=== PATIENT | male | born 1945 | race Two or more races ===

== ENCOUNTER 2018-10-03 10:00 | Outpatient (CLI) | payer MEDICARE, MEDICAID | END 2018-10-03 23:59 | disposition home or self-care (01) | LOC: WOU 10:00 | PROVIDERS: ATTEND Podiatrist Foot & Ankle Surgery | DX: I87.333 Chronic venous hypertension (idiopathic) with ulcer and inflammation of bilateral lower extremity (principal); L03.115 Cellulitis of right lower limb; L03.116 Cellulitis of left lower limb; R53.1 Weakness; Z86.73 Personal history of transient ischemic attack (TIA), and cerebral infarction without residual deficits; L97.812 Non-pressure chronic ulcer of other part of right lower leg with fat layer exposed; L97.522 Non-pressure chronic ulcer of other part of left foot with fat layer exposed; Z99.3 Dependence on wheelchair | CPT/HCPCS: 11042; 11045; A6402 ==

== ENCOUNTER 2018-10-10 10:50 | Outpatient (CLI) | payer MEDICARE, MEDICAID | END 2018-10-10 23:59 | disposition home health service (06) | LOC: WOU 10:50 | PROVIDERS: ATTEND Podiatrist Foot & Ankle Surgery | DX: I87.333 Chronic venous hypertension (idiopathic) with ulcer and inflammation of bilateral lower extremity (principal); L97.522 Non-pressure chronic ulcer of other part of left foot with fat layer exposed; L97.812 Non-pressure chronic ulcer of other part of right lower leg with fat layer exposed; L03.116 Cellulitis of left lower limb; L03.115 Cellulitis of right lower limb; Z87.891 Personal history of nicotine dependence; Z86.73 Personal history of transient ischemic attack (TIA), and cerebral infarction without residual deficits; F03.90 Unspecified dementia, unspecified severity, without behavioral disturbance, psychotic disturbance, mood disturbance, and anxiety; Z91.81 History of falling; R53.1 Weakness; Z99.3 Dependence on wheelchair | CPT/HCPCS: 11042; 11045; A6402 ×2 ==

== ENCOUNTER 2018-10-21 10:30 | Outpatient (CLI) | payer MEDICARE, MEDICAID | END 2018-10-21 23:59 | disposition home health service (06) | LOC: WOU 10:30 | PROVIDERS: ATTEND Podiatrist Foot & Ankle Surgery | DX: I87.313 Chronic venous hypertension (idiopathic) with ulcer of bilateral lower extremity (principal); L97.522 Non-pressure chronic ulcer of other part of left foot with fat layer exposed; L97.812 Non-pressure chronic ulcer of other part of right lower leg with fat layer exposed; R53.1 Weakness; Z99.3 Dependence on wheelchair; Z86.73 Personal history of transient ischemic attack (TIA), and cerebral infarction without residual deficits | CPT/HCPCS: 11042; 11045; A6402 ==

== ENCOUNTER 2018-10-28 10:00 | Outpatient (CLI) | payer MEDICARE, MEDICAID | END 2018-10-28 23:59 | disposition home health service (06) | LOC: WOU 10:00 | PROVIDERS: ATTEND Podiatrist Foot & Ankle Surgery | DX: I87.313 Chronic venous hypertension (idiopathic) with ulcer of bilateral lower extremity (principal); L97.522 Non-pressure chronic ulcer of other part of left foot with fat layer exposed; L97.812 Non-pressure chronic ulcer of other part of right lower leg with fat layer exposed; R53.1 Weakness; Z99.3 Dependence on wheelchair; Z87.891 Personal history of nicotine dependence; Z86.73 Personal history of transient ischemic attack (TIA), and cerebral infarction without residual deficits | CPT/HCPCS: 11042; 11045; A6402 ×2 ==

== ENCOUNTER 2018-11-04 10:05 | Outpatient (CLI) | payer MEDICARE, MEDICAID | END 2018-11-04 23:59 | disposition home health service (06) | LOC: WOU 10:05 | PROVIDERS: ATTEND Podiatrist Foot & Ankle Surgery | DX: I87.313 Chronic venous hypertension (idiopathic) with ulcer of bilateral lower extremity (principal); L97.522 Non-pressure chronic ulcer of other part of left foot with fat layer exposed; L97.812 Non-pressure chronic ulcer of other part of right lower leg with fat layer exposed; R53.1 Weakness; Z86.73 Personal history of transient ischemic attack (TIA), and cerebral infarction without residual deficits; Z99.3 Dependence on wheelchair; Z91.81 History of falling | CPT/HCPCS: 11042; 11045; A6402 ×2 ==

== ENCOUNTER 2018-11-25 09:55 | Outpatient (CLI) | payer MEDICARE, MEDICAID | END 2018-11-25 23:59 | disposition home health service (06) | LOC: WOU 09:55 | PROVIDERS: ATTEND Podiatrist Foot & Ankle Surgery | DX: I87.313 Chronic venous hypertension (idiopathic) with ulcer of bilateral lower extremity (principal); L97.522 Non-pressure chronic ulcer of other part of left foot with fat layer exposed; L97.812 Non-pressure chronic ulcer of other part of right lower leg with fat layer exposed; L03.116 Cellulitis of left lower limb; R32 Unspecified urinary incontinence; Z99.3 Dependence on wheelchair; Z86.73 Personal history of transient ischemic attack (TIA), and cerebral infarction without residual deficits | CPT/HCPCS: 11042; A6402 ==

== ENCOUNTER 2018-12-02 10:10 | Outpatient (CLI) | payer MEDICARE, MEDICAID | END 2018-12-02 23:59 | disposition home health service (06) | LOC: WOU 10:10 | PROVIDERS: ATTEND Podiatrist Foot & Ankle Surgery | DX: I87.313 Chronic venous hypertension (idiopathic) with ulcer of bilateral lower extremity (principal); L97.522 Non-pressure chronic ulcer of other part of left foot with fat layer exposed; L97.812 Non-pressure chronic ulcer of other part of right lower leg with fat layer exposed; R53.1 Weakness; L03.116 Cellulitis of left lower limb; Z99.3 Dependence on wheelchair; Z91.81 History of falling | CPT/HCPCS: 11042; A6402 ==

== ENCOUNTER 2019-10-30 09:30 | Outpatient (CLI) | payer MEDICARE, MEDICAID | END 2019-10-30 23:59 | disposition home health service (06) | LOC: WOU 09:30 | PROVIDERS: ATTEND Podiatrist Foot & Ankle Surgery | DX: I87.311 Chronic venous hypertension (idiopathic) with ulcer of right lower extremity (principal); L97.812 Non-pressure chronic ulcer of other part of right lower leg with fat layer exposed; I70.244 Atherosclerosis of native arteries of left leg with ulceration of heel and midfoot; I70.245 Atherosclerosis of native arteries of left leg with ulceration of other part of foot; L97.422 Non-pressure chronic ulcer of left heel and midfoot with fat layer exposed; L97.525 Non-pressure chronic ulcer of other part of left foot with muscle involvement without evidence of necrosis; Z99.3 Dependence on wheelchair; Z91.81 History of falling; Z87.891 Personal history of nicotine dependence | CPT/HCPCS: 11042; 11043; 11045; 87070; 87075; 87077; 87186 ×4; A6452 ==

== ENCOUNTER 2019-11-10 10:00 | Outpatient (CLI) | payer MEDICARE, MEDICAID | END 2019-11-10 23:59 | disposition home health service (06) | LOC: WOU 10:00 | PROVIDERS: ATTEND Podiatrist Foot & Ankle Surgery | DX: I87.311 Chronic venous hypertension (idiopathic) with ulcer of right lower extremity (principal); I70.245 Atherosclerosis of native arteries of left leg with ulceration of other part of foot; I70.244 Atherosclerosis of native arteries of left leg with ulceration of heel and midfoot; L97.525 Non-pressure chronic ulcer of other part of left foot with muscle involvement without evidence of necrosis; L97.412 Non-pressure chronic ulcer of right heel and midfoot with fat layer exposed; L97.812 Non-pressure chronic ulcer of other part of right lower leg with fat layer exposed; I87.2 Venous insufficiency (chronic) (peripheral); Z99.3 Dependence on wheelchair; Z91.81 History of falling; Z79.82 Long term (current) use of aspirin | CPT/HCPCS: 11042; 11043; A6452 ==

== ENCOUNTER 2019-11-11 14:00 | Outpatient (CLI) | payer MEDICARE, MEDICAID | END 2019-11-11 23:59 | disposition home or self-care (01) | LOC: VASLAB 14:00 | PROVIDERS: ATTEND Surgery Vascular Surgery | DX: I73.9 Peripheral vascular disease, unspecified (principal); L97.422 Non-pressure chronic ulcer of left heel and midfoot with fat layer exposed; L97.525 Non-pressure chronic ulcer of other part of left foot with muscle involvement without evidence of necrosis; L97.812 Non-pressure chronic ulcer of other part of right lower leg with fat layer exposed; Z79.82 Long term (current) use of aspirin | CPT/HCPCS: A6452 ×2; G0463 ==

== ENCOUNTER 2019-11-24 10:00 | Outpatient (CLI) | payer MEDICARE, MEDICAID | END 2019-11-24 23:59 | disposition home health service (06) | LOC: WOU 10:00 | PROVIDERS: ATTEND Podiatrist Foot & Ankle Surgery | DX: I87.311 Chronic venous hypertension (idiopathic) with ulcer of right lower extremity (principal); I70.245 Atherosclerosis of native arteries of left leg with ulceration of other part of foot; I70.244 Atherosclerosis of native arteries of left leg with ulceration of heel and midfoot; I70.234 Atherosclerosis of native arteries of right leg with ulceration of heel and midfoot; L97.425 Non-pressure chronic ulcer of left heel and midfoot with muscle involvement without evidence of necrosis; L97.412 Non-pressure chronic ulcer of right heel and midfoot with fat layer exposed; L97.525 Non-pressure chronic ulcer of other part of left foot with muscle involvement without evidence of necrosis; L97.812 Non-pressure chronic ulcer of other part of right lower leg with fat layer exposed; Z79.82 Long term (current) use of aspirin | CPT/HCPCS: 11042; 11043; A6210; A6452 ==

== ENCOUNTER 2019-12-04 10:00 | Outpatient (CLI) | payer MEDICARE, MEDICAID | END 2019-12-04 23:59 | disposition home health service (06) | LOC: WOU 10:00 | PROVIDERS: ATTEND Podiatrist Foot & Ankle Surgery | DX: I87.311 Chronic venous hypertension (idiopathic) with ulcer of right lower extremity (principal); L97.812 Non-pressure chronic ulcer of other part of right lower leg with fat layer exposed; I70.245 Atherosclerosis of native arteries of left leg with ulceration of other part of foot; I70.244 Atherosclerosis of native arteries of left leg with ulceration of heel and midfoot; I70.234 Atherosclerosis of native arteries of right leg with ulceration of heel and midfoot; L97.412 Non-pressure chronic ulcer of right heel and midfoot with fat layer exposed; L97.425 Non-pressure chronic ulcer of left heel and midfoot with muscle involvement without evidence of necrosis; L97.525 Non-pressure chronic ulcer of other part of left foot with muscle involvement without evidence of necrosis; I87.2 Venous insufficiency (chronic) (peripheral); Z79.82 Long term (current) use of aspirin | CPT/HCPCS: 11042; 11044; 11045; 73620; A6210 ==

== ENCOUNTER 2019-12-05 11:00 | Outpatient (CLI) | payer MEDICARE, MEDICAID | END 2019-12-05 23:59 | disposition home or self-care (01) | LOC: WOU 11:00 | PROVIDERS: ATTEND Internal Medicine Infectious Disease | DX: L98.499 Non-pressure chronic ulcer of skin of other sites with unspecified severity (principal); E11.51 Type 2 diabetes mellitus with diabetic peripheral angiopathy without gangrene; F03.90 Unspecified dementia, unspecified severity, without behavioral disturbance, psychotic disturbance, mood disturbance, and anxiety; I10 Essential (primary) hypertension; R62.7 Adult failure to thrive; E66.9 Obesity, unspecified; Z86.73 Personal history of transient ischemic attack (TIA), and cerebral infarction without residual deficits; Z87.440 Personal history of urinary (tract) infections | CPT/HCPCS: G0463 ==

== ENCOUNTER 2019-12-06 08:46 | Outpatient (CLI) | payer MEDICARE, MEDICAID | END 2019-12-06 23:59 | disposition home or self-care (01) | LOC: WOU 08:46 | PROVIDERS: ATTEND Nurse Practitioner Acute Care | DX: Z45.2 Encounter for adjustment and management of vascular access device (principal); L03.116 Cellulitis of left lower limb | CPT/HCPCS: 36569; C1751 ==

== ENCOUNTER → 2019-12-09 | Outpatient (CLI) | payer MEDICARE, MEDICAID ==
[~2019-12-09] MED LIST: ASPI-605 PO; FURO40TA5 PO; METO50TA16 PO; MULT-24 PO; OMEG1CAP PO; UBIQ200C PO
== END | disposition home or self-care (01) ==
LOC: VASLAB 14:00
PROVIDERS: ATTEND Surgery Vascular Surgery
DX: I70.244 Atherosclerosis of native arteries of left leg with ulceration of heel and midfoot (principal); I70.245 Atherosclerosis of native arteries of left leg with ulceration of other part of foot; L97.429 Non-pressure chronic ulcer of left heel and midfoot with unspecified severity; I87.2 Venous insufficiency (chronic) (peripheral); Z79.82 Long term (current) use of aspirin
CPT/HCPCS: G0463

== ENCOUNTER 2019-12-11 13:10 | Outpatient (CLI) | payer MEDICARE, MEDICAID ==
[2019-12-12] MEDS ORDERED: FURO40TA5 PO (14:42)
[2019-12-12] MEDS ORDERED: OMEG1CAP PO (14:42)
[2019-12-12] MEDS ORDERED: UBIQ200C PO (14:42)
[2019-12-12] MEDS ORDERED: MULT-24 PO (14:42)
[2019-12-12] MEDS ORDERED: METO50TA16 PO (14:42)
[2019-12-12] MEDS ORDERED: ASPI-605 PO (14:42)
== END 2019-12-11 23:59 | disposition home health service (06) ==
LOC: WOU 13:10
PROVIDERS: ATTEND Podiatrist Foot & Ankle Surgery
DX: I70.244 Atherosclerosis of native arteries of left leg with ulceration of heel and midfoot (principal); I70.234 Atherosclerosis of native arteries of right leg with ulceration of heel and midfoot; I70.245 Atherosclerosis of native arteries of left leg with ulceration of other part of foot; I87.311 Chronic venous hypertension (idiopathic) with ulcer of right lower extremity; I96 Gangrene, not elsewhere classified; I87.2 Venous insufficiency (chronic) (peripheral); L97.425 Non-pressure chronic ulcer of left heel and midfoot with muscle involvement without evidence of necrosis; L97.412 Non-pressure chronic ulcer of right heel and midfoot with fat layer exposed; L97.525 Non-pressure chronic ulcer of other part of left foot with muscle involvement without evidence of necrosis; L97.812 Non-pressure chronic ulcer of other part of right lower leg with fat layer exposed; Z99.3 Dependence on wheelchair; Z79.82 Long term (current) use of aspirin
CPT/HCPCS: A6209; G0463

== ENCOUNTER 2019-12-12 13:04 | Inpatient (IN) | payer MEDICARE, OTHER ==
[~2019-12-12] VITALS: Ht 170.2 cm; Wt 91.6 kg
[2019-12-12 13:47] LABS: BASOPHILS # (AUTO) 0.1 /CMM (0.0-0.2); BASOPHILS % (AUTO) 0.7 % (0.0-2.0); EOSINOPHILS % (AUTO) 0.4 % (0.0-6.0); HEMATOCRIT 47 % (39-51); HEMOGLOBIN 14.3 g/dL (13.5-17.5); LYMPHOCYTES # (AUTO) 0.8 /CMM (0.8-4.8); LYMPHOCYTES % (AUTO) 5.8 % (20.0-44.0); MEAN CORPUSCULAR HGB CONC 31 g/dl (31.0-36.0); MEAN CORPUSCULAR VOLUME 91 fL (80-96); MONOCYTES # (AUTO) 0.7 /CMM (0.1-1.30); MONOCYTES % (AUTO) 5.3 % (2.0-12.0); NEUTROPHILS # (AUTO) 11.9 /CMM (1.8-8.9); NEUTROPHILS % (AUTO) 87.8 % (43.0-81.0); PLATELET COUNT (AUTO) 238 /CMM (150-450); RED BLOOD CELL COUNT(AUTO) 5.14 MIL/uL (4.5-6.0); WHITE BLOOD COUNT (AUTO) 13.6 K/uL (4.3-11.0)
--- NOTE | 2019-12-12 14:00 | NUR ---
Family Daughter Dory updated with plan of care
[2019-12-12 14:03] LABS: ALANINE AMINOTRANSFERASE 27 U/L (12-78); ALBUMIN 2.2 g/dL (3.4-5.0); ALKALINE PHOSPHATASE 121 U/L (46-116); ASPARTATE AMINOTRANSFERASE 20 U/L (15-37); BILIRUBIN,DIRECT 0.2 mg/dL (0.0-0.2); BILIRUBIN,TOTAL 0.6 mg/dL (0.2-1.0); CALCIUM, SERUM 10.1 mg/dL (8.5-10.1); CARBON DIOXIDE 28 mmol/L (21-32); CHLORIDE 100 mmol/L (98-107); CREATININE 1.6 mg/dL (0.6-1.3); POTASSIUM 5.1 mmol/L (3.5-5.1); SODIUM SERUM 133 mmol/L (136-145); TOTAL PROTEIN, SERUM 8.3 g/dL (6.4-8.2); UREA NITROGEN, BLOOD 37 mg/dL (7-18)
[2019-12-12 14:16] LABS: GLUCOSE 754 mg/dL (74-106)
[2019-12-12] MEDS ORDERED: UBIQ200C PO (14:42)
[2019-12-12] MEDS ORDERED: ASPI-605 PO (14:42)
[2019-12-12] MEDS ORDERED: OMEG1CAP PO (14:42)
[2019-12-12] MEDS ORDERED: FURO40TA5 PO (14:42)
[2019-12-12] MEDS ORDERED: METO50TA16 PO (14:42)
[2019-12-12] MEDS ORDERED: MULT-24 PO (14:42)
[2019-12-12] MEDS ORDERED: INSULIN REGULAR, HUMAN 100 UNIT/ML 10 ML VIAL SQ ONE (15:00)
[2019-12-12] MEDS ORDERED: IV NS 0.9% 1,000 ML IV ONE (15:00)
--- NOTE | 2019-12-12 15:01 | NUR ---
Reclining in bed dozing on/off NO obvious distress. Awaiting admission
[2019-12-12] MEDS ORDERED: INSULIN REGULAR, HUMAN 100 UNIT/ML 10 ML VIAL ONE ×2 (15:29→17:36)
--- NOTE | 2019-12-12 16:20 | NUR ---
PANEL ON-CALL PAGED
--- NOTE | 2019-12-12 16:50 | NUR ---
PAGED EPIC SECOND ATTEMPT.
--- NOTE | 2019-12-12 17:00 | NUR ---
Await admission. No acute changes
--- NOTE | 2019-12-12 17:28 | NUR ---
BED ASSIGNED [id number]
--- NOTE | 2019-12-12 17:39 | NUR ---
Dr Espinal made aware of ACCU 600 with orders for 10units Regular Insulin SQ and 1L of NS bolus -Given as ordered
--- NOTE | 2019-12-12 17:48 | NUR ---
Nurse Knowledge Exchange w/RN Leatha. Transported per gurney to floor NO acute changes. No obvious distress
[2019-12-12] MEDS ORDERED: MAG HYDROX/AL HYDROX/SIMETH 30 ML UDC PO PRN (18:00)
[2019-12-12] MEDS ORDERED: MAGNESIUM HYDROXIDE 30 ML UDC PO PRN (18:00)
[2019-12-12] MEDS ORDERED: ACETAMINOPHEN 325 MG TABLET PO PRN (18:00)
[2019-12-12] MEDS ORDERED: HYDROCODONE/APAP 5/325MG 1 EACH TABLET PO PRN (18:00)
[2019-12-12] MEDS ORDERED: DEXTROSE 50%-WATER 50 ML DISP.SYRIN IV PRN (18:00)
[2019-12-12] MEDS ORDERED: ONDANSETRON HCL/PF 4 MG/2 ML VIAL IVP PRN (18:00)
[2019-12-12] MEDS ORDERED: FEE PK DOSING 1 MIN EA MC ONE (18:46)
--- NOTE | 2019-12-12 19:39 | NUR ---
MS RN RECEIVE PT IN BED A/O X 1 NEW ADMIT STABLE CONDITION ADMIT TO MS NO S/S OF DISTRESS, SAFETY MEASURES AT ALL TIMES. WILL CONT TO MONITOR
[2019-12-12 20:00] VITALS: BP 130/89
[2019-12-12] MEDS ORDERED: MEROPENEM 1 G in IV NS 0.9% 100 ML IV ONE (20:00)
--- NOTE | 2019-12-12 20:00 | NUR ---
MS RN SPOKE TO AMILCAR DAUGHTER REGARDING PT UPDATED PLAN OF CARE AND FACE TIME WITH HIS FATHER AMILCAR APPRECIATIVE TO THE NURSE
[2019-12-12 20:16] VITALS: BP 130/89
[2019-12-12] MEDS: IV NS 0.9% 1,000 ML IV PRN (20:36)
[2019-12-12] MEDS ORDERED: MEROPENEM 1 G in IV NS 0.9% 100 ML IV SCH (21:00)
[2019-12-12] MEDS: VANCOMYCIN 1 GM in IV D5W 250 ML IV SCH (21:14)
[2019-12-12] MEDS: BLOOD SUGAR DIAGNOSTIC 1 EACH STRIP IN SCH (21:16)
[2019-12-12] MEDS: INSULIN GLARGINE, 100 UNIT/ML CARTRIDGE SQ SCH (21:17)
[2019-12-12] MEDS: *INSULIN REGULAR(HUMULIN R)HUM 100 UNIT/ML VIAL SQ PRN (21:19)
[2019-12-13] MEDS: MEROPENEM 1 G in IV NS 0.9% 100 ML IV SCH ×2 (03:38→15:40)
--- NOTE | 2019-12-13 05:42 | NUR ---
MS RN SLEPT WELL, AFEBRILE. NO S/S OF DISTRESS. ALL NEEDS ATTENDED AND ANTICIPATED, KEPT CLEAN, DRY AND COMFORTABLE. AM CARE RENDERED, REPOSITION EVERY 2 HOURS, SAFETY MEASURES AT ALL TIMES. WILL ENDORSE TO NEXT SHIFT.
[2019-12-13] MEDS: IV NS 0.9% 1,000 ML IV PRN ×2 (06:14→22:02)
[2019-12-13] MEDS: INSULIN REGULAR, HUMAN 100 UNIT/ML 3 ML VIAL SQ PRN ×2 (06:32→11:55)
[2019-12-13 06:44] LABS: BASOPHILS # (AUTO) 0.1 /CMM (0.0-0.2); BASOPHILS % (AUTO) 0.8 % (0.0-2.0); HEMATOCRIT 39 % (39-51); HEMOGLOBIN 12.6 g/dL (13.5-17.5); LYMPHOCYTES # (AUTO) 1.1 /CMM (0.8-4.8); LYMPHOCYTES % (AUTO) 11.7 % (20.0-44.0); MEAN CORPUSCULAR HGB CONC 32 g/dl (31.0-36.0); MEAN CORPUSCULAR VOLUME 87 fL (80-96); MONOCYTES # (AUTO) 0.6 /CMM (0.1-1.30); NEUTROPHILS # (AUTO) 7.3 /CMM (1.8-8.9); NEUTROPHILS % (AUTO) 79.5 % (43.0-81.0); PLATELET COUNT (AUTO) 197 /CMM (150-450); RED BLOOD CELL COUNT(AUTO) 4.53 MIL/uL (4.5-6.0); WHITE BLOOD COUNT (AUTO) 9.2 K/uL (4.3-11.0)
[2019-12-13 07:27] LABS: ALBUMIN 1.8 g/dL (3.4-5.0); BILIRUBIN,TOTAL 0.5 mg/dL (0.2-1.0); CALCIUM, SERUM 9.1 mg/dL (8.5-10.1); CREATININE 1.1 mg/dL (0.6-1.3); MAGNESIUM 2.2 mg/dL (1.8-2.4); PHOSPHORUS 2.8 mg/dL (2.5-4.9); POTASSIUM 3.7 mmol/L (3.5-5.1)
[2019-12-13] MEDS: BLOOD SUGAR DIAGNOSTIC 1 EACH STRIP IN SCH ×4 (07:27→22:03)
--- NOTE | 2019-12-13 07:30 | NUR ---
MS RN NOTES RECEIVED PATIENT IN BED RESTING COMFORTABLY IN MODERATE HIGH BACK REST. A/O X1, NO S/S OF DISTRESS NOTED AT THIS TIME, IV FLUIDS ON SILVINO PICC LINE WITH NS RUNNING @100ML/HR. PATENT AND INTACT, SAFETY MEASURES IN PLACE, BED PLACE IN LOWEST LOCKED POSITION WITH SIDE RAILS UP X2. CALL LIGHT WITHIN REACH. WILL CONTINUE TO MONITOR.
[2019-12-13 08:00] VITALS: BP 132/82
[2019-12-13] MEDS: ASPIRIN EC 81 MG TABLET.DR PO SCH (08:24)
[2019-12-13] MEDS: FUROSEMIDE 40 MG TABLET PO SCH (08:24)
[2019-12-13] MEDS: MULTIVITAMINS,THERAGRAN 1 UDTAB TABLET PO SCH (08:24)
[2019-12-13] MEDS: PANTOPRAZOLE 40 MG TABLET.DR PO SCH (08:25)
[2019-12-13] MEDS: METOPROLOL TARTRATE 50 MG TABLET PO SCH ×2 (08:25→16:24)
[2019-12-13] MEDS: VANCOMYCIN 1 GM in IV D5W 250 ML IV SCH (14:26)
[2019-12-13 15:30] LABS: CREATININE, URINE < 13.0 MG/DL (30.0-125.0); URINE SODIUM, RANDOM 137 mmol/l (40-220); URINE TOTAL PROTEIN 12.2 mg/dL (0-11.9)
[2019-12-13 15:41] LABS: APPEARANCE,URINE CLEAR (CLEAR); BILIRUBIN,URINE NEGATIVE (NEGATIVE); BLOOD, URINE TRACE-INTA Ery/uL (NEGATIVE); COLOR,URINE YELLOW (YELLOW); KETONES,URINE NEGATIVE (NEGATIVE); LEUKOCYTE ESTERASE ,URINE TRACE (NEGATIVE); NITRITE, URINE NEGATIVE (NEGATIVE); PH,URINE 5.5 (5.0-8.0); PROTEIN,URINE NEGATIVE (NEGATIVE); UGLUCOSE NEGATIVE (NEGATIVE); UROBILINOGEN,URINE 0.2 EU/dL (0.2)
[2019-12-13 15:48] LABS: BACTERIA,URINE None seen /HPF (None Seen); HYALINE CASTS, URINE Few /LPF (None Seen); RBC,URINE 0-2 /HPF (0-2); SQUAMOUS EPITHELIAL CELL,UR Few /HPF (None Seen); WBC,URINE 0-2 /HPF (0-3)
[2019-12-13 15:50] LABS: EOSINOPHIL,URINE None Seen
--- NOTE | 2019-12-13 18:33 | NUR ---
MS RN NOTES PATIENT IN BED RESTING COMFORTABLY IN MODERATE HIGH BACK REST. A/O X1, NO S/S OF DISTRESS NOTED THROUGHOUT THE SHIFT, IV FLUIDS ON SILVINO PICC LINE WITH NS RUNNING @100ML/HR. PATENT AND INTACT, SAFETY MEASURES IN PLACE, BED PLACE IN LOWEST LOCKED POSITION WITH SIDE RAILS UP X2. CALL LIGHT WITHIN REACH. WILL ENDORSE TO MAGNETIC TESTER NURSE FOR ANGELY.
--- NOTE | 2019-12-13 19:14 | NUR ---
MS RN RECEIVE PT IN BED AWAKE A/O X 1 STABLE, NO S/S OF DISTRESS, SAFETY MEASURES AT ALL TIMES. WILL CONT TO MONITOR
[2019-12-13 20:00] VITALS: BP 116/57
[2019-12-13 20:12] VITALS: BP 116/57
[2019-12-13] MEDS: *INSULIN REGULAR(HUMULIN R)HUM 100 UNIT/ML VIAL SQ PRN (22:06)
[2019-12-13] MEDS: INSULIN GLARGINE, 100 UNIT/ML CARTRIDGE SQ SCH (22:11)
[2019-12-14] MEDS: MEROPENEM 1 G in IV NS 0.9% 100 ML IV SCH ×2 (03:55→15:07)
--- NOTE | 2019-12-14 05:44 | NUR ---
MS RN PT SLEPT WELL, GOOD SKIN CARE AT ALL TIMES, MONITORED ACCORDINGLY, NEEDS ATTENDED AND ANTICIPATED, KEPT CLEAN, DRY AND COMFORTABLE. AM CARE RENDERED, REPOSITION EVERY 2 HOURS, SAFETY MEASURES AT ALL TIMES. WILL ENDORSE TO NEXT SHIFT.
[2019-12-14] MEDS: BLOOD SUGAR DIAGNOSTIC 1 EACH STRIP IN SCH ×4 (06:29→21:25)
[2019-12-14] MEDS: INSULIN REGULAR, HUMAN 100 UNIT/ML 3 ML VIAL SQ PRN ×3 (06:31→16:59)
[2019-12-14 08:00] VITALS: BP 143/81
[2019-12-14 08:11] LABS: BASOPHILS # (AUTO) 0.1 /CMM (0.0-0.2); HEMATOCRIT 42 % (39-51); HEMOGLOBIN 13.3 g/dL (13.5-17.5); LYMPHOCYTES # (AUTO) 1.2 /CMM (0.8-4.8); LYMPHOCYTES % (AUTO) 14.1 % (20.0-44.0); MEAN CORPUSCULAR HGB CONC 31 g/dl (31.0-36.0); MEAN CORPUSCULAR VOLUME 88 fL (80-96); MONOCYTES # (AUTO) 0.6 /CMM (0.1-1.30); MONOCYTES % (AUTO) 6.4 % (2.0-12.0); NEUTROPHILS # (AUTO) 6.7 /CMM (1.8-8.9); NEUTROPHILS % (AUTO) 76.5 % (43.0-81.0); PLATELET COUNT (AUTO) 195 /CMM (150-450); WHITE BLOOD COUNT (AUTO) 8.8 K/uL (4.3-11.0)
[2019-12-14] MEDS: ASPIRIN EC 81 MG TABLET.DR PO SCH (08:13)
[2019-12-14] MEDS: FUROSEMIDE 40 MG TABLET PO SCH (08:13)
[2019-12-14] MEDS: MULTIVITAMINS,THERAGRAN 1 UDTAB TABLET PO SCH (08:13)
[2019-12-14] MEDS: PANTOPRAZOLE 40 MG TABLET.DR PO SCH (08:13)
[2019-12-14] MEDS: METOPROLOL TARTRATE 50 MG TABLET PO SCH ×2 (08:14→16:15)
[2019-12-14 08:52] LABS: CALCIUM, SERUM 8.9 mg/dL (8.5-10.1); CREATININE 1.2 mg/dL (0.6-1.3); POTASSIUM 3.4 mmol/L (3.5-5.1)
[2019-12-14] MEDS: IV NS 0.9% 1,000 ML IV PRN (08:58)
[2019-12-14] MEDS: VANCOMYCIN 1 GM in IV D5W 250 ML IV SCH (09:11)
[2019-12-14] MEDS ORDERED: POTASSIUM CHLORIDE 20 MEQ TAB.PRT.SR PO SCH (10:00)
[2019-12-14 10:09] LABS: PTH, INTACT 26 pg/mL (15-65)
[2019-12-14 16:00] VITALS: BP 128/68
[2019-12-14] MEDS: GLUCERNA SHAKE 237 ML CAN PO SCH (17:30)
--- NOTE | 2019-12-14 18:49 | NUR ---
MS RN NOTES PATIENT IN BED RESTING COMFORTABLY IN MODERATE HIGH BACK REST. A/O X1, NO S/S OF DISTRESS NOTED THROUGHOUT THE SHIFT, IV FLUIDS ON SILVINO PICC LINE WITH NS RUNNING @100ML/HR. PATENT AND INTACT, SAFETY MEASURES IN PLACE, BED PLACE IN LOWEST LOCKED POSITION WITH SIDE RAILS UP X2. CALL LIGHT WITHIN REACH. WILL ENDORSE TO LNA NURSE FOR ANGELY.
--- NOTE | 2019-12-14 19:50 | NUR ---
MS RN OPENING NOTES RECEIVED PATIENT FROM MORNING SHIFT, ALERT AND ORIENTED X 1 CONFUSED. BREATHING REGULAR AND UNLABORED ON OXYGEN AT 2L/MIN VIA NASAL CANNULA. RIGHT UPPER ARM PICC LINE INTACT AND PATENT, INFUSING WELL WITH NO BLEEDING OR S/S OF INFILTRATION NOTED. NO S/S OF PAIN/DISCOMFORT NOTED AT THIS TIME. BED LOW AND LOCKED ON SEMI FOWLERS POSITION. CALL LIGHT IN REACH. WILL CONTINUE TO MONITOR.
[2019-12-14 20:00] VITALS: BP 121/68
[2019-12-14] MEDS: INSULIN GLARGINE, 100 UNIT/ML CARTRIDGE SQ SCH (21:24)
[2019-12-14] MEDS: *INSULIN REGULAR(HUMULIN R)HUM 100 UNIT/ML VIAL SQ PRN (21:25)
--- NOTE | 2019-12-14 21:30 | NUR ---
MS RN NOTES BS 229mg/dl, 24UNITS LANTUS AND 4UNITS REGULAR INSULIN GIVEN SQ. SITE ROTATED. ASSISTED ON EATING SNACKS. WILL CONTINUE TO MONITOR.
--- NOTE | 2019-12-14 22:00 | NUR ---
MS RN NOTES SKIN ASSESSMENT DONE, PHOTOS TAKEN ATTACHED TO CHART. WOUND TREATMENT PROVIDED. WILL CONTINUE TO MONITOR.
[2019-12-15] MEDS: VANCOMYCIN 1 GM in IV D5W 250 ML IV SCH ×2 (01:07→20:47)
[2019-12-15] MEDS: IV NS 0.9% 1,000 ML IV PRN (01:25)
[2019-12-15] MEDS: MEROPENEM 1 G in IV NS 0.9% 100 ML IV SCH ×2 (03:41→16:07)
[2019-12-15] MEDS: BLOOD SUGAR DIAGNOSTIC 1 EACH STRIP IN SCH ×4 (06:37→21:46)
[2019-12-15] MEDS: INSULIN REGULAR, HUMAN 100 UNIT/ML 3 ML VIAL SQ PRN ×3 (06:38→17:44)
--- NOTE | 2019-12-15 06:40 | NUR ---
MS RN CLOSING NOTES PATIENT IN BED, ALERT AND ORIENTED X 1 CONFUSED. AFEBRILE WITH NO S/SOF DISTRESS OBSERVED. RIGHT UPPER ARM PICC LINE PATENT AND INFUSING WELL. NO S/S OF PAIN/DISCOMFORT NOTED AT THIS TIME. BED LOW AND LOCKED ON SEMI FOWLERS POSITION. CALL LIGHT IN REACH. WILL ENDORSE TO MORNING SHIFT FOR ANGELY.
[2019-12-15 06:50] LABS: BASOPHILS # (AUTO) 0.1 /CMM (0.0-0.2); BASOPHILS % (AUTO) 1.4 % (0.0-2.0); EOSINOPHILS % (AUTO) 1.9 % (0.0-6.0); HEMATOCRIT 41 % (39-51); HEMOGLOBIN 12.9 g/dL (13.5-17.5); LYMPHOCYTES # (AUTO) 1.2 /CMM (0.8-4.8); LYMPHOCYTES % (AUTO) 12.8 % (20.0-44.0); MEAN CORPUSCULAR HGB CONC 32 g/dl (31.0-36.0); MEAN CORPUSCULAR VOLUME 87 fL (80-96); MONOCYTES # (AUTO) 0.6 /CMM (0.1-1.30); MONOCYTES % (AUTO) 6.5 % (2.0-12.0); NEUTROPHILS % (AUTO) 77.4 % (43.0-81.0); PLATELET COUNT (AUTO) 174 /CMM (150-450); RED BLOOD CELL COUNT(AUTO) 4.65 MIL/uL (4.5-6.0)
--- NOTE | 2019-12-15 07:14 | NUR ---
MS/RN OPENING NOTES RECEIVED PATIENT IN BED, ALERT AND ORIENTED X 1 CONFUSED. AFEBRILE WITH NO S/S OF DISTRESS OBSERVED. RIGHT UPPER ARM PICC LINE PATENT AND INFUSING WELL. NO S/S OF PAIN/DISCOMFORT NOTED AT THIS TIME. BED LOW AND LOCKED ON SEMI FOWLERS POSITION. CALL LIGHT IN REACH. WILL CONTINUE TO MONITOR.
[2019-12-15 07:30] VITALS: BP 139/78
[2019-12-15 07:35] LABS: ALBUMIN 1.7 g/dL (3.4-5.0); BILIRUBIN,TOTAL 0.6 mg/dL (0.2-1.0); CALCIUM, SERUM 8.5 mg/dL (8.5-10.1); CREATININE 1.1 mg/dL (0.6-1.3); MAGNESIUM 1.8 mg/dL (1.8-2.4); PHOSPHORUS 2.2 mg/dL (2.5-4.9); POTASSIUM 3.4 mmol/L (3.5-5.1); TOTAL PROTEIN, SERUM 6.9 g/dL (6.4-8.2)
[2019-12-15] MEDS: PANTOPRAZOLE 40 MG TABLET.DR PO SCH (07:50)
--- NOTE | 2019-12-15 08:21 | NUR ---
WOUND CARE CONSULT: PT PRESENTS WITH RASH TO GROIN FOLDS, INNER THIGHS AND PERINEUM, PRESENT ON ADMISSION. PT ALSO PRESENTS FROM WOUND CLINIC WITH MULTIPLE WOUNDS TO LOWER EXTREMITIES, PRESENT ON ADMISSION. DEFER TO DPM FOR LOWER EXREMITIES. DR BROWN AWARE OF DPM CONSULT REQUEST. PT IS ON PEDRITO ISOFLEX LOW AIRLOSS BED. PT IS INCONTINENT. ALL SKIN PROTECTION RECOMMENDATIONS DISCUSSED WITH NURSING STAFF. WILL SEE PRN. GLOVER IN AGREEMENT WITH PLAN OF CARE. Addendum: 12/15/19 at 0824 by EMEKA SANDY WNDNU Amended: Links added.
[2019-12-15] MEDS ORDERED: Z GUARD REMEDY 2 OZ OINT TP PRN (08:30)
[2019-12-15] MEDS: MULTIVITAMINS,THERAGRAN 1 UDTAB TABLET PO SCH (08:40)
[2019-12-15] MEDS: ASPIRIN EC 81 MG TABLET.DR PO SCH (08:40)
[2019-12-15] MEDS: FUROSEMIDE 40 MG TABLET PO SCH (08:41)
[2019-12-15] MEDS: METOPROLOL TARTRATE 50 MG TABLET PO SCH ×2 (08:41→17:32)
[2019-12-15] MEDS: CLOTRIMAZOLE 1% 15 GM TUBE TP SCH ×2 (08:42→17:34)
[2019-12-15] MEDS: Z GUARD REMEDY 2 OZ OINT TP SCH (08:42)
[2019-12-15] MEDS: GLUCERNA SHAKE 237 ML CAN PO SCH ×2 (08:43→17:45)
[2019-12-15] MEDS ORDERED: POTASSIUM CHLORIDE 20 MEQ TAB.PRT.SR PO ONE (09:30)
[2019-12-15] MEDS ORDERED: NEUTRA PHOS 1 POWD.PACKET PO ONE (09:30)
[2019-12-15 16:00] VITALS: BP 125/69
[2019-12-15 16:09] LABS: *SPE ALPHA-1-GLOBULIN 0.3 g/dL (0.0-0.4); *SPE BETA GLOBULIN 0.8 g/dL (0.7-1.3); *SPE GLOBULIN, TOTAL 3.8 g/dL (2.2-3.9); *SPE M-SPIKE Not Observed g/dL (Not Observed); *SPEGAMMA GLOBULIN 1.6 g/dL (0.4-1.8)
[2019-12-15 16:10] LABS: *SPE A/G RATIO 0.5 (0.7-1.7)
--- NOTE | 2019-12-15 19:11 | NUR ---
MS/RN CLOSING NOTES PATIENT IN BED, ALERT AND ORIENTED X 1-2 CONFUSED. AFEBRILE WITH NO S/S OF DISTRESS OBSERVED. RIGHT UPPER ARM PICC LINE PATENT AND INFUSING WELL. NO S/S OF PAIN/DISCOMFORT NOTED AT THIS TIME. SEEN AND EXAMINED BY MD WITH ORDERS MADE AND CARRIED OUT. ALL DUE MEDICATION WAS GIVEN. BED LOW AND LOCKED ON SEMI FOWLERS POSITION. CALL LIGHT IN REACH. WILL ENDORSED TO TECHNICAL SOLUTION ARCHITECT FOR ANGELY.
--- NOTE | 2019-12-15 19:45 | NUR ---
MS RN OPENING NOTES RECEIVED PATIENT FROM MORNING SHIFT, ALERT AND ORIENTED X 1-2. BREATHING REGULAR AND UNLABORED ON OXYGEN AT 2L/MIN VIA NASAL CANNULA. RIGHT UPPER ARM PICC LINE INTACT AND PATENT, INFUSING WELL WITH NO BLEEDING OR S/S OF INFILTRATION NOTED. NO S/S OF PAIN/DISCOMFORT NOTED AT THIS TIME. BED LOW AND LOCKED ON SEMI FOWLERS POSITION. CALL LIGHT IN REACH. WILL CONTINUE TO MONITOR.
[2019-12-15 20:00] VITALS: BP 137/81
[2019-12-15] MEDS: INSULIN GLARGINE, 100 UNIT/ML CARTRIDGE SQ SCH (21:48)
[2019-12-15] MEDS: *INSULIN REGULAR(HUMULIN R)HUM 100 UNIT/ML VIAL SQ PRN (21:49)
--- NOTE | 2019-12-15 22:00 | NUR ---
MS RN NOTES BS 237mg/dl, 24UNITS LANTUS AND 4UNITS REGULAR INSULIN GIVEN SQ. SITE ROTATED. ASSISTED ON EATING SNACKS. WILL CONTINUE TO MONITOR.
[2019-12-16] MEDS: MEROPENEM 1 G in IV NS 0.9% 100 ML IV SCH ×2 (04:04→16:49)
[2019-12-16] MEDS: BLOOD SUGAR DIAGNOSTIC 1 EACH STRIP IN SCH ×4 (06:31→22:18)
[2019-12-16] MEDS: INSULIN REGULAR, HUMAN 100 UNIT/ML 3 ML VIAL SQ PRN ×3 (06:32→17:21)
--- NOTE | 2019-12-16 06:40 | NUR ---
MS RN CLOSING NOTES PATIENT IN BED, ALERT AND ORIENTED X 1-2. AFEBRILE WITH NO S/SOF DISTRESS OBSERVED. RIGHT UPPER ARM PICC LINE PATENT AND FLUSHING WELL. NO S/S OF PAIN/DISCOMFORT NOTED AT THIS TIME. BED LOW AND LOCKED ON SEMI FOWLERS POSITION. CALL LIGHT IN REACH. WILL ENDORSE TO MORNING SHIFT FOR ANGELY.
[2019-12-16 07:02] LABS: BASOPHILS # (AUTO) 0.1 /CMM (0.0-0.2); EOSINOPHILS % (AUTO) 2.6 % (0.0-6.0); HEMATOCRIT 41 % (39-51); HEMOGLOBIN 13.3 g/dL (13.5-17.5); LYMPHOCYTES # (AUTO) 1.2 /CMM (0.8-4.8); LYMPHOCYTES % (AUTO) 13.9 % (20.0-44.0); MEAN CORPUSCULAR HGB CONC 32 g/dl (31.0-36.0); MEAN CORPUSCULAR VOLUME 86 fL (80-96); MONOCYTES # (AUTO) 0.6 /CMM (0.1-1.30); MONOCYTES % (AUTO) 6.7 % (2.0-12.0); NEUTROPHILS # (AUTO) 6.8 /CMM (1.8-8.9); NEUTROPHILS % (AUTO) 75.8 % (43.0-81.0); PLATELET COUNT (AUTO) 176 /CMM (150-450); RED BLOOD CELL COUNT(AUTO) 4.79 MIL/uL (4.5-6.0); WHITE BLOOD COUNT (AUTO) 8.9 K/uL (4.3-11.0)
[2019-12-16 07:28] LABS: CALCIUM, SERUM 8.7 mg/dL (8.5-10.1); CREATININE 1.2 mg/dL (0.6-1.3); MAGNESIUM 1.7 mg/dL (1.8-2.4); PHOSPHORUS 2.6 mg/dL (2.5-4.9); POTASSIUM 3.6 mmol/L (3.5-5.1)
--- NOTE | 2019-12-16 07:30 | NUR ---
MS/RN NOTE THE PATIENT IS RECEIVED IN BED. THE PATIENT IS ALERT AND ORIENTED X2. PATIENT DENIES PAIN. IN ROOM AIR AND DENIES SOB. RESPIRATION REGULAR AND UNLABORED. THE PATIENT IN NO APPARENT DISTRESS. SILVINO PICC LINE PATENT AND SALINE LOCKED. BED LOW AND LOCKED. SIDE RAILS UP X3. CALL LIGHT WITHIN REACH. WILL CONTINUE TO MONITOR.
[2019-12-16 08:00] VITALS: BP 154/72
[2019-12-16] MEDS: PANTOPRAZOLE 40 MG TABLET.DR PO SCH (09:34)
[2019-12-16] MEDS: ASPIRIN EC 81 MG TABLET.DR PO SCH (09:34)
[2019-12-16] MEDS: FUROSEMIDE 40 MG TABLET PO SCH (09:34)
[2019-12-16] MEDS: METOPROLOL TARTRATE 50 MG TABLET PO SCH ×2 (09:34→17:24)
[2019-12-16] MEDS: MULTIVITAMINS,THERAGRAN 1 UDTAB TABLET PO SCH (09:34)
[2019-12-16] MEDS: CLOTRIMAZOLE 1% 15 GM TUBE TP SCH ×2 (09:36→17:22)
[2019-12-16] MEDS: HYDROGEL DRESSING 90 GM TUBE TP SCH (09:36)
[2019-12-16] MEDS: Z GUARD REMEDY 2 OZ OINT TP SCH (09:36)
[2019-12-16] MEDS: GLUCERNA SHAKE 237 ML CAN PO SCH ×2 (09:38→17:22)
[2019-12-16] MEDS: Magnesium 1GM/D5W 100ML PREMIX 100 ML IV SCH ×2 (11:19→15:31)
[2019-12-16] MEDS: VANCOMYCIN 1 GM in IV D5W 250 ML IV SCH (14:17)
[2019-12-16 15:57] VITALS: BP 118/62
--- NOTE | 2019-12-16 19:10 | NUR ---
RN OPENING NOTES Received patient awake, confused, resting on bed. On RA, saturating well, no respiratory distress noted at this time. No s/sx of discomfort noted at this time. Kept on bed clean, dry and comfortable. On fall and aspiration precautions. Kept HOB elevated at all times. Will continue to monitor accordingly.
--- NOTE | 2019-12-16 19:31 | NUR ---
MS/RN NOTE THE PATIENT HAD ELEVATED BLOOD SUGAR: AT 1717 IT WAS 407 AT 1738 IS WAS 403 AT 1804 IT WAS 394 AT 1816 IT WAS 381 AT [address] MULLER WAS MADE AWARE OF ALL BLOOD SUGAR RESULTS. FOR BLOOD SUGAR OF 407 GAVE 20 UNIT REGULAR INSULIN PER SLIDING SCALE AND INFORMED MD. PER MD MONITORED THE PATIENT`S BLOOD SUGAR AND AFTER REPORTING ANOTHER BLOOD SUGAR READING (381) MD ORDERED REGULAR 5 UNITS INSULIN TO BE GIVEN TID WITH MEALS. THE ORDER IS VERIFIED. NOTED AND CARRIED OUT. UPCOMING SHIFT IS GIVEN PROPER ENDORSEMENT.
--- NOTE | 2019-12-16 19:35 | NUR ---
MS/RN NOTE THE PATIENT IS ALERT AND ORIENTED X2. DENIES PAIN. RECEIVING OXYGEN AT 2L/MIN VIA NASAL CANNULA AND SATURATION AT 96%. DENIES SOB. RESPIRATION REGULAR AND UNLABORED. PATIENT IN NO APPARENT DISTRESS. SILVINO PICC LINE PATENT AND IV ANTIBIOTIC INFUSING PER ORDER. NO S/S INFILTRATION NOTED. BED LOW AND LOCKED. SIDE RAILS UP X3. CALL LIGHT WITHIN REACH. ENDORSED TO REGROOVER.
[2019-12-16 20:00] VITALS: BP 123/77
[2019-12-16] MEDS: INSULIN GLARGINE, 100 UNIT/ML CARTRIDGE SQ SCH (22:00)
[2019-12-16] MEDS: IV NS 0.9% 1,000 ML IV PRN (23:18)
[2019-12-17] VITALS (13 sets, daily range): BP systolic 124–160; BP diastolic 60–94
[2019-12-17] MEDS: MEROPENEM 1 G in IV NS 0.9% 100 ML IV SCH ×2 (04:19→16:00)
--- NOTE | 2019-12-17 06:29 | NUR ---
RN CLOSING NOTES Patient asleep, easily awaken. On RA, no s/sx of discomfort noted at this time. Kept on NPO since midnight. On IVF infusing well as ordered. All nursing needs attended, due meds given as ordered. Kept on bed clean, dry and comfortable. On fall and aspiration precautions. Endorsed.
[2019-12-17] MEDS: BLOOD SUGAR DIAGNOSTIC 1 EACH STRIP IN SCH ×4 (06:49→21:44)
[2019-12-17] MEDS: *INSULIN REGULAR(HUMULIN R)HUM 100 UNIT/ML VIAL SQ PRN ×2 (06:50→21:44)
--- NOTE | 2019-12-17 07:00 | NUR ---
MS RN NOTES PATIENT IN BED EYES CLOSED, RESPOND TO VERBAL AND TACTILE STIMULI. NO ACUTE DISTRESS NOTED. BREATHING UNLABORED. NO FACIAL GRIMACING NOTED. IV ACCESS PATENT AND INTACT. NO REDNESS , NO SWELLING NOTED. SAFETY MEASURES IN PLACE. CALL LIGHT WITHIN REACH WILL CONTINUE TO MONITOR ACCORDINGLY.
[2019-12-17 07:18] LABS: BASOPHILS # (AUTO) 0.1 /CMM (0.0-0.2); BASOPHILS % (AUTO) 1.1 % (0.0-2.0); EOSINOPHILS % (AUTO) 3.2 % (0.0-6.0); HEMATOCRIT 39 % (39-51); HEMOGLOBIN 12.3 g/dL (13.5-17.5); LYMPHOCYTES # (AUTO) 1.1 /CMM (0.8-4.8); LYMPHOCYTES % (AUTO) 16.1 % (20.0-44.0); MEAN CORPUSCULAR HGB CONC 32 g/dl (31.0-36.0); MEAN CORPUSCULAR VOLUME 88 fL (80-96); MONOCYTES # (AUTO) 0.5 /CMM (0.1-1.30); NEUTROPHILS # (AUTO) 4.8 /CMM (1.8-8.9); NEUTROPHILS % (AUTO) 71.6 % (43.0-81.0); PLATELET COUNT (AUTO) 138 /CMM (150-450); RED BLOOD CELL COUNT(AUTO) 4.48 MIL/uL (4.5-6.0); WHITE BLOOD COUNT (AUTO) 6.7 K/uL (4.3-11.0)
[2019-12-17] MEDS: PANTOPRAZOLE 40 MG TABLET.DR PO SCH (07:30)
[2019-12-17 07:39] LABS: CALCIUM, SERUM 8.5 mg/dL (8.5-10.1); CREATININE 1.3 mg/dL (0.6-1.3); POTASSIUM 3.8 mmol/L (3.5-5.1)
[2019-12-17] MEDS: GLUCERNA SHAKE 237 ML CAN PO SCH ×2 (08:00→17:00)
[2019-12-17] MEDS: INSULIN REGULAR, HUMAN 100 UNIT/ML 3 ML VIAL SQ SCH ×3 (08:00→18:00)
[2019-12-17] MEDS ORDERED: IODIXANOL 150 ML IV ONE (08:08)
[2019-12-17] MEDS ORDERED: IV SET PRIMARY PUMP SET 1 EA INFUS.SET MC ONE (08:09)
[2019-12-17] MEDS ORDERED: IV NS 0.9% 1,000 ML ONE (08:09)
[2019-12-17] MEDS: VANCOMYCIN 1 GM in IV D5W 250 ML IV SCH ×2 (08:30→16:00)
--- NOTE | 2019-12-17 08:30 | NUR ---
MS RN NOTES PATIENT TRANSPORTED FOR PROCEDURE IN STABLE CONDITION. ALERT ORIENTED X 1.
[2019-12-17] MEDS ORDERED: LIDOCAINE HCL/PF 1% 30 ML SDV ONE (08:49)
[2019-12-17] MEDS: HYDROGEL DRESSING 90 GM TUBE TP SCH (09:00)
[2019-12-17] MEDS: MULTIVITAMINS,THERAGRAN 1 UDTAB TABLET PO SCH (09:00)
[2019-12-17] MEDS ORDERED: MIDAZOLAM HCL 2 MG/2ML VIAL ONE ×2 (09:00→10:27)
[2019-12-17] MEDS: Z GUARD REMEDY 2 OZ OINT TP SCH (09:00)
[2019-12-17] MEDS: ASPIRIN EC 81 MG TABLET.DR PO SCH (09:00)
[2019-12-17] MEDS ORDERED: FENTANYL PF 100MCG/2ML AMPUL ONE ×2 (09:00→09:02)
[2019-12-17] MEDS: POTASSIUM CHLORIDE 20 MEQ TAB.PRT.SR PO SCH (09:00)
[2019-12-17] MEDS: METOPROLOL TARTRATE 50 MG TABLET PO SCH ×2 (09:00→17:42)
[2019-12-17] MEDS: FUROSEMIDE 40 MG TABLET PO SCH (09:00)
[2019-12-17] MEDS: CLOTRIMAZOLE 1% 15 GM TUBE TP SCH ×2 (09:00→17:00)
[2019-12-17] MEDS ORDERED: NALOXONE HCL 0.4 MG/ML AMPUL ONE (09:11)
--- NOTE | 2019-12-17 09:30 | NUR ---
MS MERCEDES NOTES PATIENT TRANSPORTED FOR PROCEDURE IN STABLE CONDITION. ALERT ORIENTED X 1. Addendum: 12/17/19 at 1026 by NOÉ WHITNEY RN DISREGARD ABOVE NOTES, WRONG ENTRY
[2019-12-17] MEDS ORDERED: IODIXANOL 320MG/ML 100 ML IV ONE (09:33)
[2019-12-17] MEDS ORDERED: HEPARIN SODIUM, PORCINE 1,000 UNIT/ML VIAL ONE ×2 (09:37→10:30)
[2019-12-17] MEDS ORDERED: IODIXANOL 320MG/ML 50 ML IV ONE (09:53)
[2019-12-17] MEDS: IV NS 0.9% 1,000 ML IV PRN (13:00)
[2019-12-17 13:07] LABS: BASOPHILS # (AUTO) 0.1 /CMM (0.0-0.2); BASOPHILS % (AUTO) 1.1 % (0.0-2.0); EOSINOPHILS % (AUTO) 1.9 % (0.0-6.0); HEMATOCRIT 43 % (39-51); HEMOGLOBIN 13.6 g/dL (13.5-17.5); LYMPHOCYTES # (AUTO) 0.9 /CMM (0.8-4.8); LYMPHOCYTES % (AUTO) 11.2 % (20.0-44.0); MEAN CORPUSCULAR HGB CONC 32 g/dl (31.0-36.0); MEAN CORPUSCULAR VOLUME 87 fL (80-96); MONOCYTES # (AUTO) 0.5 /CMM (0.1-1.30); NEUTROPHILS # (AUTO) 6.6 /CMM (1.8-8.9); NEUTROPHILS % (AUTO) 79.8 % (43.0-81.0); PLATELET COUNT (AUTO) 188 /CMM (150-450); RED BLOOD CELL COUNT(AUTO) 4.91 MIL/uL (4.5-6.0); WHITE BLOOD COUNT (AUTO) 8.2 K/uL (4.3-11.0)
[2019-12-17 13:26] LABS: ALBUMIN 1.9 g/dL (3.4-5.0); BILIRUBIN,TOTAL 0.6 mg/dL (0.2-1.0); CALCIUM, SERUM 8.7 mg/dL (8.5-10.1); CREATININE 1.2 mg/dL (0.6-1.3); POTASSIUM 4.1 mmol/L (3.5-5.1); TOTAL PROTEIN, SERUM 7.5 g/dL (6.4-8.2)
[2019-12-17] MEDS ORDERED: HYDROCODONE/APAP 5/325MG 1 EACH TABLET PO PRN ×2 (14:30)
[2019-12-17] MEDS ORDERED: CLOPIDOGREL BISULFATE 300 MG TABLET PO ONE (14:30)
[2019-12-17] MEDS ORDERED: ACETAMINOPHEN 325 MG TABLET PO PRN (14:30)
[2019-12-17] MEDS: INSULIN REGULAR, HUMAN 100 UNIT/ML 3 ML VIAL SQ PRN (18:00)
--- NOTE | 2019-12-17 19:00 | NUR ---
CHILDREN'S TUTOR Closing Patient s/p balloon angio today, no bleeding from site noted. Room air SPO2 94%. Says simple words, oriented to self, follows simple commands. Sign for thickened liquids only at bedside, suction setup. Patient belongings at bedside.
--- NOTE | 2019-12-17 20:00 | NUR ---
RN OPENING NOTES Received patient awake,A/O X1-2 with period of confusion . On o2 at 1liter via nc , saturating well97% no respiratory distress noted at this time.v/s stable afebrile s/p angioplasty right femoral site dressing dry intact no bleeding noted .No s/s of discomfort noted at this time. Kept on bed clean, dry and comfortable. On fall and aspiration precautions. Kept HOB elevated at all times. Will continue to monitor accordingly.
[2019-12-17] MEDS: ENOXAPARIN SODIUM 40 MG/0.4 ML DISP.SYRIN SQ SCH (21:13)
--- NOTE | 2019-12-17 21:30 | NUR ---
corn miller notes spoke to melanie daughter updated with pts condition , able to do face time with the daughter.all needs attended to call light within reach kept pts clean dry and comfortable , will continue to monitor pts
[2019-12-17] MEDS: INSULIN GLARGINE, 100 UNIT/ML CARTRIDGE SQ SCH (21:40)
--- NOTE | 2019-12-17 22:00 | NUR ---
precision agriculture technician notes blood sugar for 10pm is 269 mg/dl 6 units og regular insulin given per sliding scale and 24 units of lantus given as order pts on po diet and on ivf on ns 75cc/hr infusing well.
[2019-12-18] VITALS (22 sets, daily range): BP systolic 107–198; BP diastolic 54–100
[2019-12-18 05:58] LABS: ALBUMIN 1.8 g/dL (3.4-5.0); BILIRUBIN,TOTAL 0.6 mg/dL (0.2-1.0); CALCIUM, SERUM 8.7 mg/dL (8.5-10.1); CREATININE 1.1 mg/dL (0.6-1.3); POTASSIUM 3.8 mmol/L (3.5-5.1); TOTAL PROTEIN, SERUM 6.8 g/dL (6.4-8.2)
--- NOTE | 2019-12-18 07:30 | NUR ---
RN NOTES RECEIVED PATIENT, AWAKE, ALERT, ORIENTEDX1, ABLE TO MAKE NEEDS KNOWN AND EXPRESSES SELF TO SIMPLE WORDS.ABLE TO FOLLOW COMMANDS. NOT ON ANY FORM OF DISTRESS. BREATHING UNLABORED WITH OXYGEN SUPPORT VIA NASAL CANNULA AT 2LPM. SATING FINE. NO INDICATION OF PAIN NOTED AT THIS TIME. IV ACCESS ON THE LEFT UPPER ARM, SAFETY MEASURES OBSERVED AND MAINTAINED. SRX2 [id number] CALL LIGHT PLACED WITHIN REACH WILL CONTINUE TO MONITOR PATIENT ACCORDINGLY
[2019-12-18] MEDS: ASPIRIN EC 81 MG TABLET.DR PO SCH (07:52)
[2019-12-18] MEDS: POTASSIUM CHLORIDE 20 MEQ TAB.PRT.SR PO SCH (07:52)
[2019-12-18] MEDS: METOPROLOL TARTRATE 50 MG TABLET PO SCH ×2 (07:53→17:59)
[2019-12-18] MEDS: MULTIVITAMINS,THERAGRAN 1 UDTAB TABLET PO SCH (07:53)
[2019-12-18] MEDS: HYDROGEL DRESSING 90 GM TUBE TP SCH (07:54)
[2019-12-18] MEDS: Z GUARD REMEDY 2 OZ OINT TP SCH (07:54)
[2019-12-18] MEDS: CLOTRIMAZOLE 1% 15 GM TUBE TP SCH ×2 (07:54→17:59)
[2019-12-18] MEDS: PANTOPRAZOLE 40 MG TABLET.DR PO SCH (07:55)
[2019-12-18] MEDS: GLUCERNA SHAKE 237 ML CAN PO SCH ×2 (07:55→17:59)
[2019-12-18] MEDS: INSULIN REGULAR, HUMAN 100 UNIT/ML 3 ML VIAL SQ SCH ×3 (08:00→18:06)
[2019-12-18] MEDS: BLOOD SUGAR DIAGNOSTIC 1 EACH STRIP IN SCH ×4 (09:45→21:29)
[2019-12-18] MEDS: CLOPIDOGREL BISULFATE 75 MG TABLET PO SCH (09:46)
[2019-12-18] MEDS: FUROSEMIDE 40 MG TABLET PO SCH (09:46)
--- NOTE | 2019-12-18 12:00 | NUR ---
RN NOTES CLARIFIED WITH DR. MULLER IF HE WOULD WANT US TO GIVE 5 UNITS OF REGULAR INSULIN ON TOP OF THE AGRESSIVE SLIDING SCALE INSULIN AWAITING RESPONSE. SLIDING SCALE NOT GIVEN BUT SCHEDULE 5 UNITS ADMINISTERED. PATIENT ONLY ATE 25% OF THE SERVED FOOD
--- NOTE | 2019-12-18 12:00 | NUR ---
RN NOTES DR. BROWN OBTAINED CONSENT FOR SERIAL DEBRIDEMENT FROM DAUGHTER AMILCAR.WOUND DEBRIDEMENT AND WOUND TREATMENT RENDERED AFTER. PATIENT ABLE TO TOLERATE THE PROCEDURE WELL. WILL CONTINUE TO MONITOR PATIENT ACCORDINGLY
[2019-12-18 13:06] LABS: BASOPHILS # (AUTO) 0.1 /CMM (0.0-0.2); HEMATOCRIT 40 % (39-51); HEMOGLOBIN 12.5 g/dL (13.5-17.5); LYMPHOCYTES # (AUTO) 1.1 /CMM (0.8-4.8); LYMPHOCYTES % (AUTO) 13.1 % (20.0-44.0); MEAN CORPUSCULAR HGB CONC 32 g/dl (31.0-36.0); MEAN CORPUSCULAR VOLUME 88 fL (80-96); MONOCYTES # (AUTO) 0.8 /CMM (0.1-1.30); MONOCYTES % (AUTO) 9.4 % (2.0-12.0); NEUTROPHILS # (AUTO) 5.9 /CMM (1.8-8.9); NEUTROPHILS % (AUTO) 73.5 % (43.0-81.0); PLATELET COUNT (AUTO) 189 /CMM (150-450)
[2019-12-18] MEDS: MEROPENEM 1 G in IV NS 0.9% 100 ML IV SCH (17:37)
--- NOTE | 2019-12-18 18:00 | NUR ---
RN SLIDING SCALE NOT GIVEN BUT SCHEDULE 5 UNITS ADMINISTERED. PATIENT ONLY ATE 25% OF THE SERVED FOOD
[2019-12-18] MEDS: VANCOMYCIN 1 GM in IV D5W 250 ML IV SCH (18:23)
--- NOTE | 2019-12-18 18:35 | NUR ---
RN NOTES TRANSFERRED TO MED SURG ROOM 202. BEDSIDE REPORT GIVEN TO DAREN MCGUIRE. HANDS OFF
--- NOTE | 2019-12-18 19:00 | NUR ---
RN NOTES PATIENT TRANSFERRED FROM ICE PATIENT A/O X1, STABLE , ON ROOM AIR, NO ACUTE RESPIRATORY DISTRESS,V/S TAKEN BP 148/ 78, P-77, T-98. PATIENT BED REST,REFUSED PAIN AT THIS TIME. CALL LIGHT WITHIN REACH. CALL LIGHT WITHIN TO REACH. ENDORSED ONCOMING NURSE FOLLOW PLAN OF CARE.
--- NOTE | 2019-12-18 19:38 | NUR ---
MS RN RECEIVE PT IN BED AWAKE WATCHING TV A/O X 1 STABLE, NO S/S OF DISTRESS, SAFETY MEASURES AT ALL TIMES. WILL CONT TO MONITOR
[2019-12-18] MEDS: ENOXAPARIN SODIUM 40 MG/0.4 ML DISP.SYRIN SQ SCH (21:21)
[2019-12-18] MEDS: INSULIN GLARGINE, 100 UNIT/ML CARTRIDGE SQ SCH (21:29)
[2019-12-18] MEDS: *INSULIN REGULAR(HUMULIN R)HUM 100 UNIT/ML VIAL SQ PRN (21:30)
[2019-12-19] MEDS: MEROPENEM 1 G in IV NS 0.9% 100 ML IV SCH ×2 (03:28→16:05)
--- NOTE | 2019-12-19 05:50 | NUR ---
MS RN NO SIGNIFICANT CHANGES, ALL NEEDS ATTENDED AND ANTICIPATED, WOUND CARE ORDERED. NO S/S OF DISTRESS, KEPT CLEAN, DRY AND COMFORTABLE. REPOSITION EVERY 2 HOURS, SAFETY MEASURES AT ALL TIMES. WILL ENDORSE TO NEXT SHIFT.
[2019-12-19] MEDS: INSULIN REGULAR, HUMAN 100 UNIT/ML 3 ML VIAL SQ PRN ×2 (06:25→17:20)
[2019-12-19] MEDS: BLOOD SUGAR DIAGNOSTIC 1 EACH STRIP IN SCH ×4 (06:25→21:05)
[2019-12-19 06:53] LABS: BASOPHILS # (AUTO) 0.1 /CMM (0.0-0.2); BASOPHILS % (AUTO) 0.9 % (0.0-2.0); HEMATOCRIT 39 % (39-51); HEMOGLOBIN 12.4 g/dL (13.5-17.5); LYMPHOCYTES # (AUTO) 0.9 /CMM (0.8-4.8); LYMPHOCYTES % (AUTO) 11.8 % (20.0-44.0); MEAN CORPUSCULAR HGB CONC 32 g/dl (31.0-36.0); MEAN CORPUSCULAR VOLUME 86 fL (80-96); MONOCYTES # (AUTO) 0.6 /CMM (0.1-1.30); MONOCYTES % (AUTO) 7.9 % (2.0-12.0); NEUTROPHILS % (AUTO) 75.4 % (43.0-81.0); PLATELET COUNT (AUTO) 178 /CMM (150-450); RED BLOOD CELL COUNT(AUTO) 4.49 MIL/uL (4.5-6.0); WHITE BLOOD COUNT (AUTO) 7.9 K/uL (4.3-11.0)
[2019-12-19 07:25] LABS: ALANINE AMINOTRANSFERASE 20 U/L (12-78); ALBUMIN 1.8 g/dL (3.4-5.0); ALKALINE PHOSPHATASE 90 U/L (46-116); ASPARTATE AMINOTRANSFERASE 23 U/L (15-37); BILIRUBIN,TOTAL 0.5 mg/dL (0.2-1.0); CALCIUM, SERUM 8.5 mg/dL (8.5-10.1); CARBON DIOXIDE 33 mmol/L (21-32); CHLORIDE 105 mmol/L (98-107); CREATININE 1.1 mg/dL (0.6-1.3); GLUCOSE 108 mg/dL (74-106); PHOSPHORUS 2.5 mg/dL (2.5-4.9); POTASSIUM 3.3 mmol/L (3.5-5.1); SODIUM SERUM 141 mmol/L (136-145); TOTAL PROTEIN, SERUM 6.7 g/dL (6.4-8.2); UREA NITROGEN, BLOOD 12 mg/dL (7-18)
[2019-12-19 08:00] VITALS: BP 145/81
[2019-12-19] MEDS: INSULIN REGULAR, HUMAN 100 UNIT/ML 3 ML VIAL SQ SCH ×3 (08:00→17:15)
--- NOTE | 2019-12-19 08:00 | NUR ---
RN NOTES RECEIVED PATIENT IN THE BED A/O X1, BUT REDIRECTABLE. PATIENT ROOM AIR, NO ACUTE RESPIRATORY DISTRESS, BS-92 GM/DL, HELD SCHEDULED INSULIN. PATIENT TOTAL ASSIST EATING NECTAR THICKENER , AND DAILY HYGIENE. TOLERATED BREAKFAST WELL, ADMINISTERED SCHEDULED MEDICATION BY CRUSHED, KEEP HOB ELEVATED FOR ASPIRATION PRECAUTION. PATIENT HAS [place], WOUND BILATERAL LOWER EXTREMITIES, REFUSED PAIN, ASSIST TURN AND REPOSTION Q 2HR, IV ACCESS ON RIGHT UA PICC LINE. PATIENT INCONTINENT.
[2019-12-19] MEDS: METOPROLOL TARTRATE 50 MG TABLET PO SCH ×2 (08:48→17:07)
[2019-12-19] MEDS: ASPIRIN EC 81 MG TABLET.DR PO SCH (08:48)
[2019-12-19] MEDS: FUROSEMIDE 40 MG TABLET PO SCH (08:48)
[2019-12-19] MEDS: POTASSIUM CHLORIDE 20 MEQ TAB.PRT.SR PO SCH (08:48)
[2019-12-19] MEDS: MULTIVITAMINS,THERAGRAN 1 UDTAB TABLET PO SCH (08:48)
[2019-12-19] MEDS: CLOPIDOGREL BISULFATE 75 MG TABLET PO SCH (08:49)
[2019-12-19] MEDS: GLUCERNA SHAKE 237 ML CAN PO SCH ×2 (08:49→17:05)
[2019-12-19] MEDS: PANTOPRAZOLE 40 MG TABLET.DR PO SCH (08:49)
[2019-12-19] MEDS: CLOTRIMAZOLE 1% 15 GM TUBE TP SCH ×2 (08:50→17:04)
[2019-12-19] MEDS: HYDROGEL DRESSING 90 GM TUBE TP SCH (08:50)
[2019-12-19] MEDS: Z GUARD REMEDY 2 OZ OINT TP SCH (08:50)
[2019-12-19] MEDS ORDERED: diphenhydrAMINE HCL 25 MG CAPSULE PO PRN (12:30)
--- NOTE | 2019-12-19 12:30 | NUR ---
RN NOTES SEEN PATIENT BY HOSPITALIST Dr MULLER GET TO ORDER BENADRYL 25 MG/ PO PRN FOR RASH ON BACK. ORDER TAKEN AND CARRIED OUT.
--- NOTE | 2019-12-19 13:20 | NUR ---
RN NOTES ADMINISTERED BENADRYL 25 MG PO PRN FOR ITCHING.
--- NOTE | 2019-12-19 14:00 | NUR ---
RN NOTES SEEN PATIENT BY WOUND MD, DRESSING CHANGED, PER SUPERVISOR SANDBLASTER PATIENT WILL D/C HOME, NO MORE TREATMENT, PATIENT WILL FOLLOW OUTPATIENT WOUND. MEDICATION WERE ADMINISTERED FOR ITCHING EFFECTIVE, ASSIST TURN AND REPOSITION Q 2 HR. PATIENT TOLERATED LUNCH WELL WITH ASSIST, BS-113 MG/DL, ADMINISTERED SCHEDULED MEDICATION. CONTINUED MONITORING.
[2019-12-19] MEDS: VANCOMYCIN 1 GM in IV D5W 250 ML IV SCH (16:26)
--- NOTE | 2019-12-19 18:00 | NUR ---
RN NOTES BS-223 MG/DL COVERAGE GIVEN, V/S STABLE, PATIENT REFUSED PAIN, ASSIST FEEDING, AND TURN AND REPOSTION Q 2 HR. INFUSING MERREM 33.33 EXTENDED DOSE ON RIGHT UA INTACT. CALL LIGHT WITHIN TO REACH. ADMINISTERED SCHEDULED MEDICATION. ENDORSED ONCOMING NURSE FOLLOW PLAN OF CARE.
--- NOTE | 2019-12-19 19:22 | NUR ---
MS RN RECEIVE PT IN BED AWAKE WATCHING TV A/O X 1 NO S/S OF DISTRESS SAFETY MEASURES AT ALL TIMES. WILL CONT TO MONITOR
[2019-12-19 20:00] VITALS: BP 131/71
[2019-12-19] MEDS: INSULIN GLARGINE, 100 UNIT/ML CARTRIDGE SQ SCH (21:06)
[2019-12-19] MEDS: ENOXAPARIN SODIUM 40 MG/0.4 ML DISP.SYRIN SQ SCH (21:11)
[2019-12-19] MEDS: *INSULIN REGULAR(HUMULIN R)HUM 100 UNIT/ML VIAL SQ PRN (21:15)
[2019-12-19 21:27] VITALS: BP 131/71
[2019-12-20] MEDS: MEROPENEM 1 G in IV NS 0.9% 100 ML IV SCH ×2 (03:10→18:09)
--- NOTE | 2019-12-20 05:23 | NUR ---
MS RN NO SIGNIFICANT CHANGES, PT STABLE AND NOT IN DISTRESS, NURSING CARE RENDERED, WOUND CARE ORDERED. KEPT CLEAN, DRY AND COMFORTABLE. REPOSITION EVERY 2 HOURS, SAFETY MEASURES AT ALL TIMES. WILL ENDORSE TO NEXT SHIFT.
[2019-12-20 06:46] LABS: CALCIUM, SERUM 8.5 mg/dL (8.5-10.1); CREATININE 1.1 mg/dL (0.6-1.3); POTASSIUM 3.2 mmol/L (3.5-5.1)
[2019-12-20] MEDS: BLOOD SUGAR DIAGNOSTIC 1 EACH STRIP IN SCH ×3 (06:55→18:07)
[2019-12-20] MEDS: INSULIN REGULAR, HUMAN 100 UNIT/ML 3 ML VIAL SQ PRN ×2 (06:56→12:40)
--- NOTE | 2019-12-20 07:20 | NUR ---
RN BRENNAN NOTES RECEIVED PATIENT IN THE BED A/O X1, BUT REDIRECTABLE. PATIENT ON ROOM AIR, NOT IN ANY FORM OF DISTRESS. NO SOB. DENIED PAIN OR DISCOMFORT AT THIS TIME. HOB ELEVATED FOR ASPIRATION PRECAUTION. IV ACCESS INTACT AND PATENT. NOTED WITH WOUND ON BILATERAL LOWER EXTREMITIES. ASSISTED IN TURNING AND REPOSITIONING Q 2HR. SAFETY MEASURES IN PLACE. BED IN LOW/LOCKED PSOTIION, SIDERAILS UPX2, CALL IGHT IN REACH. WILL CONT TO MONIOTR ACCORDINGLY
[2019-12-20 08:00] VITALS: BP 120/75
[2019-12-20] MEDS: INSULIN REGULAR, HUMAN 100 UNIT/ML 3 ML VIAL SQ SCH ×2 (08:00→13:11)
[2019-12-20] MEDS: MULTIVITAMINS,THERAGRAN 1 UDTAB TABLET PO SCH (08:50)
[2019-12-20] MEDS: PANTOPRAZOLE 40 MG TABLET.DR PO SCH (08:51)
[2019-12-20] MEDS: CLOPIDOGREL BISULFATE 75 MG TABLET PO SCH (08:51)
[2019-12-20] MEDS: POTASSIUM CHLORIDE 20 MEQ TAB.PRT.SR PO SCH ×3 (08:51→12:34)
[2019-12-20] MEDS: FUROSEMIDE 40 MG TABLET PO SCH (08:52)
[2019-12-20] MEDS: METOPROLOL TARTRATE 50 MG TABLET PO SCH ×2 (08:52→18:07)
[2019-12-20] MEDS: ASPIRIN EC 81 MG TABLET.DR PO SCH (08:52)
[2019-12-20] MEDS: GLUCERNA SHAKE 237 ML CAN PO SCH ×2 (08:57→18:05)
[2019-12-20] MEDS: HYDROGEL DRESSING 90 GM TUBE TP SCH (09:00)
[2019-12-20] MEDS: CLOTRIMAZOLE 1% 15 GM TUBE TP SCH ×2 (09:00→18:05)
[2019-12-20] MEDS: Z GUARD REMEDY 2 OZ OINT TP SCH (09:01)
[2019-12-20 16:00] VITALS: BP 143/84
[2019-12-20] MEDS: VANCOMYCIN 1 GM in IV D5W 250 ML IV SCH (16:34)
[2019-12-20 18:07] VITALS: BP 143/84
--- NOTE | 2019-12-20 18:40 | NUR ---
DISCHARGED PATIENT IN STABLE CONDITION PICKED UP BY CHARGING CRANE OPERATOR. DISCHARGED INSTRUCTION GIVEN TO PATIENT AND CALLED THE FAMILY, VERBALIZED UNDERSTANDING. PRESCRIPTIONS, ALL BELONGINGS AND DC PAPERWORK HANDED TO CHARGING CRANE OPERATOR. PERSONAL IV PUMP RETURNED AND HANDED TO CHARGING CRANE OPERATOR. SUPPLIES FOR WOUND CARE, BED LUEVANO AND URINAL PROVIDED WELL. PICC IN LINE INTACT AND PATENT FOR CONT ABX USE AT HOME. WOUND PHOTOS TAKEN. NAME BAND REMOVED.
[2019-12-21] MEDS ORDERED: VANCOMYCIN 1 GM in IV D5W 250 ML IV ONE (10:00)
[2019-12-22] MEDS ORDERED: VANCOMYCIN 1 GM in IV D5W 250 ML IV SCH (10:00)
== END 2019-12-20 18:30 | disposition home health service (06) | DRG 622 ==
LOC: ER 13:08 → MEDSG2 17:50 → ICU 12-17 11:45 → MEDSG2 12-18 18:45
PROVIDERS: ADMIT Hospitalist; ATTEND Legal Medicine
PROC: 0KBW0ZZ Excision of Left Foot Muscle, Open Approach (ICD-10-PCS; principal; 2019-12-18)
DX: E11.00 Type 2 diabetes mellitus with hyperosmolarity without nonketotic hyperglycemic-hyperosmolar coma (NKHHC) (principal); N17.0 Acute kidney failure with tubular necrosis; E43 Unspecified severe protein-calorie malnutrition; L03.115 Cellulitis of right lower limb; E87.0 Hyperosmolality and hypernatremia; L03.116 Cellulitis of left lower limb; E44.0 Moderate protein-calorie malnutrition; J98.11 Atelectasis; L97.429 Non-pressure chronic ulcer of left heel and midfoot with unspecified severity; L97.419 Non-pressure chronic ulcer of right heel and midfoot with unspecified severity; E11.51 Type 2 diabetes mellitus with diabetic peripheral angiopathy without gangrene; E11.621 Type 2 diabetes mellitus with foot ulcer; I10 Essential (primary) hypertension; F03.90 Unspecified dementia, unspecified severity, without behavioral disturbance, psychotic disturbance, mood disturbance, and anxiety; E11.65 Type 2 diabetes mellitus with hyperglycemia; E11.622 Type 2 diabetes mellitus with other skin ulcer; Z86.73 Personal history of transient ischemic attack (TIA), and cerebral infarction without residual deficits; Z98.62 Peripheral vascular angioplasty status; L97.529 Non-pressure chronic ulcer of other part of left foot with unspecified severity; L97.519 Non-pressure chronic ulcer of other part of right foot with unspecified severity; E87.6 Hypokalemia; E66.01 Morbid (severe) obesity due to excess calories; Z88.2 Allergy status to sulfonamides; Z91.040 Latex allergy status; Z79.82 Long term (current) use of aspirin; Z79.899 Other long term (current) drug therapy; E83.39 Other disorders of phosphorus metabolism; Z74.01 Bed confinement status; M62.562 Muscle wasting and atrophy, not elsewhere classified, left lower leg; M62.561 Muscle wasting and atrophy, not elsewhere classified, right lower leg
CPT/HCPCS: 36415; 71045-TC; 75625; 75716-TC; 80048-TC; 80053-TC; 80061-TC; 80076-TC; 80202-TC; 81000-TC; 82550-TC; 82570-TC; 82962-TC; 83605-TC; 83735-TC; 83970; 84100-TC; 84155; 84155-TC; 84165; 84300-TC; 84484-TC; 85025-TC; 85730-TC; 86850-TC; 87040-TC; 87081-TC; 87086-TC; 92526; 92611-TC; 92982; A6248; A6253; A6403; C1725; C1760; C1769; C1887; C1894; G0378; G0500; J1644; J1650; J1815; J2185; J2250; J2310; J3010; J3370; J3475; J3490; J7030; J7040; J7050; J7060; Q0163; Q9967

== ENCOUNTER 2019-12-25 13:40 | Outpatient (CLI) | payer MEDICARE, OTHER | END 2019-12-25 23:59 | disposition home health service (06) | LOC: WOU 13:40 | PROVIDERS: ATTEND Podiatrist Foot & Ankle Surgery | DX: I70.245 Atherosclerosis of native arteries of left leg with ulceration of other part of foot (principal); I70.244 Atherosclerosis of native arteries of left leg with ulceration of heel and midfoot; I70.234 Atherosclerosis of native arteries of right leg with ulceration of heel and midfoot; I87.311 Chronic venous hypertension (idiopathic) with ulcer of right lower extremity; I96 Gangrene, not elsewhere classified; L89.153 Pressure ulcer of sacral region, stage 3; L97.525 Non-pressure chronic ulcer of other part of left foot with muscle involvement without evidence of necrosis; L97.428 Non-pressure chronic ulcer of left heel and midfoot with other specified severity; L97.418 Non-pressure chronic ulcer of right heel and midfoot with other specified severity; L97.812 Non-pressure chronic ulcer of other part of right lower leg with fat layer exposed; L22 Diaper dermatitis; R41.82 Altered mental status, unspecified; Z79.82 Long term (current) use of aspirin | CPT/HCPCS: 11042; 82962; G0463; 11043 ==

== ENCOUNTER 2020-01-05 09:45 | Outpatient (CLI) | payer MEDICARE, OTHER | END 2020-01-05 23:59 | disposition home health service (06) | LOC: WOU 09:45 | PROVIDERS: ATTEND Podiatrist Foot & Ankle Surgery | DX: I87.311 Chronic venous hypertension (idiopathic) with ulcer of right lower extremity (principal); I96 Gangrene, not elsewhere classified; I70.245 Atherosclerosis of native arteries of left leg with ulceration of other part of foot; I70.244 Atherosclerosis of native arteries of left leg with ulceration of heel and midfoot; I70.234 Atherosclerosis of native arteries of right leg with ulceration of heel and midfoot; L97.522 Non-pressure chronic ulcer of other part of left foot with fat layer exposed; L97.423 Non-pressure chronic ulcer of left heel and midfoot with necrosis of muscle; L97.413 Non-pressure chronic ulcer of right heel and midfoot with necrosis of muscle; L97.812 Non-pressure chronic ulcer of other part of right lower leg with fat layer exposed; I87.2 Venous insufficiency (chronic) (peripheral); L89.153 Pressure ulcer of sacral region, stage 3; L22 Diaper dermatitis; R41.82 Altered mental status, unspecified; Z79.82 Long term (current) use of aspirin | CPT/HCPCS: 11042; 11043; 11045 ==

== ENCOUNTER 2020-01-12 09:50 | Outpatient (CLI) | payer MEDICARE, OTHER | END 2020-01-12 23:59 | disposition home health service (06) | LOC: WOU 09:50 | PROVIDERS: ATTEND Podiatrist Foot & Ankle Surgery | DX: I87.311 Chronic venous hypertension (idiopathic) with ulcer of right lower extremity (principal); L97.812 Non-pressure chronic ulcer of other part of right lower leg with fat layer exposed; I96 Gangrene, not elsewhere classified; I70.245 Atherosclerosis of native arteries of left leg with ulceration of other part of foot; I70.244 Atherosclerosis of native arteries of left leg with ulceration of heel and midfoot; I70.234 Atherosclerosis of native arteries of right leg with ulceration of heel and midfoot; L97.423 Non-pressure chronic ulcer of left heel and midfoot with necrosis of muscle; L97.413 Non-pressure chronic ulcer of right heel and midfoot with necrosis of muscle; L97.528 Non-pressure chronic ulcer of other part of left foot with other specified severity; L97.518 Non-pressure chronic ulcer of other part of right foot with other specified severity; I87.2 Venous insufficiency (chronic) (peripheral); Z79.82 Long term (current) use of aspirin | CPT/HCPCS: 11042; 11043 ==

== ENCOUNTER 2020-01-14 14:05 | Outpatient (CLI) | payer MEDICARE, OTHER | END 2020-01-14 23:59 | disposition home or self-care (01) | LOC: WOU 14:05 | PROVIDERS: ATTEND Nurse Practitioner Acute Care | DX: Z45.2 Encounter for adjustment and management of vascular access device (principal); Z79.2 Long term (current) use of antibiotics; M86.9 Osteomyelitis, unspecified | CPT/HCPCS: 36569; C1751 ==

== ENCOUNTER 2020-01-19 09:50 | Outpatient (CLI) | payer MEDICARE, OTHER | END 2020-01-19 23:59 | disposition home health service (06) | LOC: WOU 09:50 | PROVIDERS: ATTEND Podiatrist Foot & Ankle Surgery | DX: I70.244 Atherosclerosis of native arteries of left leg with ulceration of heel and midfoot (principal); I70.234 Atherosclerosis of native arteries of right leg with ulceration of heel and midfoot; L97.423 Non-pressure chronic ulcer of left heel and midfoot with necrosis of muscle; L97.413 Non-pressure chronic ulcer of right heel and midfoot with necrosis of muscle; I87.2 Venous insufficiency (chronic) (peripheral); Z99.3 Dependence on wheelchair; L22 Diaper dermatitis; F03.90 Unspecified dementia, unspecified severity, without behavioral disturbance, psychotic disturbance, mood disturbance, and anxiety; Z79.82 Long term (current) use of aspirin | CPT/HCPCS: 11042; 11043 ==

== ENCOUNTER 2020-01-26 10:10 | Outpatient (CLI) | payer MEDICARE, OTHER | END 2020-01-26 23:59 | disposition home health service (06) | LOC: WOU 10:10 | PROVIDERS: ATTEND Podiatrist Foot & Ankle Surgery | DX: I70.244 Atherosclerosis of native arteries of left leg with ulceration of heel and midfoot (principal); I70.245 Atherosclerosis of native arteries of left leg with ulceration of other part of foot; I70.234 Atherosclerosis of native arteries of right leg with ulceration of heel and midfoot; I87.311 Chronic venous hypertension (idiopathic) with ulcer of right lower extremity; L97.426 Non-pressure chronic ulcer of left heel and midfoot with bone involvement without evidence of necrosis; L97.413 Non-pressure chronic ulcer of right heel and midfoot with necrosis of muscle; L97.522 Non-pressure chronic ulcer of other part of left foot with fat layer exposed; L97.518 Non-pressure chronic ulcer of other part of right foot with other specified severity; L97.812 Non-pressure chronic ulcer of other part of right lower leg with fat layer exposed | CPT/HCPCS: 11042; 11043; 11044; 11047 ==

== ENCOUNTER 2020-02-02 10:40 | Outpatient (CLI) | payer MEDICARE, OTHER ==
[2020-02-02] MEDS ORDERED: LIDOCAINE SOLN 4% 50 ML BOTTLE ONE (11:04)
[2020-02-02] MEDS ORDERED: SILVER NITRATE APPLICATOR 1 EA BOX ONE (11:21)
[2020-02-02] MEDS ORDERED: COLLAGENASE 5 GM TUBE UD TP ONE (11:32)
== END 2020-02-02 23:59 | disposition home health service (06) ==
LOC: WOU 10:40
PROVIDERS: ATTEND Podiatrist Foot & Ankle Surgery
DX: I70.244 Atherosclerosis of native arteries of left leg with ulceration of heel and midfoot (principal); I70.234 Atherosclerosis of native arteries of right leg with ulceration of heel and midfoot; L97.426 Non-pressure chronic ulcer of left heel and midfoot with bone involvement without evidence of necrosis; L97.413 Non-pressure chronic ulcer of right heel and midfoot with necrosis of muscle; I87.311 Chronic venous hypertension (idiopathic) with ulcer of right lower extremity; L97.812 Non-pressure chronic ulcer of other part of right lower leg with fat layer exposed; I87.2 Venous insufficiency (chronic) (peripheral); Z79.82 Long term (current) use of aspirin
CPT/HCPCS: 11042; 11043; 11044; 11047

== ENCOUNTER 2020-02-09 10:00 | Outpatient (CLI) | payer MEDICARE, OTHER ==
[2020-02-09] MEDS ORDERED: LIDOCAINE SOLN 4% 50 ML BOTTLE ONE (10:10)
[2020-02-09] MEDS ORDERED: COLLAGENASE 5 GM TUBE UD TP ONE (10:49)
== END 2020-02-09 23:59 | disposition home health service (06) ==
LOC: WOU 10:00
PROVIDERS: ATTEND Podiatrist Foot & Ankle Surgery
DX: I70.244 Atherosclerosis of native arteries of left leg with ulceration of heel and midfoot (principal); I70.243 Atherosclerosis of native arteries of left leg with ulceration of ankle; L89.153 Pressure ulcer of sacral region, stage 3; I87.2 Venous insufficiency (chronic) (peripheral); L22 Diaper dermatitis; R41.82 Altered mental status, unspecified; Z99.3 Dependence on wheelchair; Z79.82 Long term (current) use of aspirin
CPT/HCPCS: 11043; 11044; 11047

== ENCOUNTER 2020-02-16 10:50 | Outpatient (CLI) | payer MEDICARE, OTHER ==
[2020-02-16] MEDS ORDERED: LIDOCAINE SOLN 4% 50 ML BOTTLE ONE (11:01)
[2020-02-16] MEDS ORDERED: COLLAGENASE 5 GM TUBE UD TP ONE (11:47)
== END 2020-02-16 23:59 | disposition home health service (06) ==
LOC: WOU 10:50
PROVIDERS: ATTEND Podiatrist Foot & Ankle Surgery
DX: I70.244 Atherosclerosis of native arteries of left leg with ulceration of heel and midfoot (principal); I70.234 Atherosclerosis of native arteries of right leg with ulceration of heel and midfoot; L97.426 Non-pressure chronic ulcer of left heel and midfoot with bone involvement without evidence of necrosis; L97.413 Non-pressure chronic ulcer of right heel and midfoot with necrosis of muscle; I87.2 Venous insufficiency (chronic) (peripheral); L22 Diaper dermatitis; R41.82 Altered mental status, unspecified; Z79.82 Long term (current) use of aspirin
CPT/HCPCS: 11043; 11044; 11047; 97605-TC; A6209

== ENCOUNTER 2020-02-23 10:00 | Outpatient (CLI) | payer MEDICARE, OTHER ==
[2020-02-23] MEDS ORDERED: LIDOCAINE SOLN 4% 50 ML BOTTLE ONE (10:14)
[2020-02-23] MEDS ORDERED: COLLAGENASE 5 GM TUBE UD TP ONE (10:48)
== END 2020-02-23 23:59 | disposition home health service (06) ==
LOC: WOU 10:00
PROVIDERS: ATTEND Podiatrist Foot & Ankle Surgery
DX: I70.244 Atherosclerosis of native arteries of left leg with ulceration of heel and midfoot (principal); I70.234 Atherosclerosis of native arteries of right leg with ulceration of heel and midfoot; L97.426 Non-pressure chronic ulcer of left heel and midfoot with bone involvement without evidence of necrosis; L97.413 Non-pressure chronic ulcer of right heel and midfoot with necrosis of muscle; I87.2 Venous insufficiency (chronic) (peripheral); L22 Diaper dermatitis; Z99.3 Dependence on wheelchair
CPT/HCPCS: 11043; C5275; Q4117

== ENCOUNTER 2020-03-04 09:50 | Outpatient (CLI) | payer MEDICARE, OTHER ==
[2020-03-04] MEDS ORDERED: LIDOCAINE SOLN 4% 50 ML BOTTLE ONE (09:52)
[2020-03-04] MEDS ORDERED: COLLAGENASE 5 GM TUBE UD TP ONE (10:51)
== END 2020-03-04 23:59 | disposition home health service (06) ==
LOC: WOU 09:50
PROVIDERS: ATTEND Podiatrist Foot & Ankle Surgery
DX: I70.234 Atherosclerosis of native arteries of right leg with ulceration of heel and midfoot (principal); I70.244 Atherosclerosis of native arteries of left leg with ulceration of heel and midfoot; L97.426 Non-pressure chronic ulcer of left heel and midfoot with bone involvement without evidence of necrosis; L97.413 Non-pressure chronic ulcer of right heel and midfoot with necrosis of muscle; I87.2 Venous insufficiency (chronic) (peripheral); Z79.82 Long term (current) use of aspirin
CPT/HCPCS: 11043

== ENCOUNTER 2020-03-11 09:40 | Outpatient (CLI) | payer MEDICARE, OTHER ==
[~2020-03-11 09:40] MED LIST changes: +LIDOCAINE SOLN 4% 50 ML BOTTLE ONE
== END 2020-03-11 23:59 | disposition home health service (06) ==
LOC: WOU 09:40
PROVIDERS: ATTEND Podiatrist Foot & Ankle Surgery
DX: I70.244 Atherosclerosis of native arteries of left leg with ulceration of heel and midfoot (principal); I70.234 Atherosclerosis of native arteries of right leg with ulceration of heel and midfoot; I70.245 Atherosclerosis of native arteries of left leg with ulceration of other part of foot; I87.2 Venous insufficiency (chronic) (peripheral); L97.426 Non-pressure chronic ulcer of left heel and midfoot with bone involvement without evidence of necrosis; L97.413 Non-pressure chronic ulcer of right heel and midfoot with necrosis of muscle; L97.518 Non-pressure chronic ulcer of other part of right foot with other specified severity; Z79.82 Long term (current) use of aspirin; Z99.3 Dependence on wheelchair
CPT/HCPCS: 11043; 11044; 11047

== ENCOUNTER 2020-03-18 09:45 | Outpatient (CLI) | payer MEDICARE, OTHER ==
[~2020-03-18 09:45] MED LIST changes: -LIDOCAINE SOLN 4% 50 ML BOTTLE ONE
[2020-03-18] MEDS ORDERED: COLLAGENASE 5 GM TUBE UD TP ONE (10:15)
== END 2020-03-18 23:59 | disposition home health service (06) ==
LOC: WOU 09:45
PROVIDERS: ATTEND Podiatrist Foot & Ankle Surgery
DX: I70.244 Atherosclerosis of native arteries of left leg with ulceration of heel and midfoot (principal); I70.234 Atherosclerosis of native arteries of right leg with ulceration of heel and midfoot; L97.426 Non-pressure chronic ulcer of left heel and midfoot with bone involvement without evidence of necrosis; L97.413 Non-pressure chronic ulcer of right heel and midfoot with necrosis of muscle; I87.2 Venous insufficiency (chronic) (peripheral); Z79.82 Long term (current) use of aspirin; Z99.3 Dependence on wheelchair
CPT/HCPCS: 11043; 11044

== ENCOUNTER 2020-03-25 10:45 | Outpatient (CLI) | payer MEDICARE, OTHER ==
[2020-03-25] MEDS ORDERED: LIDOCAINE SOLN 4% 50 ML BOTTLE ONE (10:54)
[2020-03-25] MEDS ORDERED: COLLAGENASE 5 GM TUBE UD TP ONE ×2 (11:16)
== END 2020-03-25 23:59 | disposition home health service (06) ==
LOC: WOU 10:45
PROVIDERS: ATTEND Podiatrist Foot & Ankle Surgery
DX: I70.244 Atherosclerosis of native arteries of left leg with ulceration of heel and midfoot (principal); I70.4 Atherosclerosis of autologous vein bypass graft(s) of the extremities; L97.426 Non-pressure chronic ulcer of left heel and midfoot with bone involvement without evidence of necrosis; L97.413 Non-pressure chronic ulcer of right heel and midfoot with necrosis of muscle; I87.2 Venous insufficiency (chronic) (peripheral); Z79.82 Long term (current) use of aspirin
CPT/HCPCS: 11043; 11044; 11047

== ENCOUNTER 2020-03-29 09:50 | Outpatient (CLI) | payer MEDICARE, OTHER ==
[2020-03-29] MEDS ORDERED: LIDOCAINE SOLN 4% 50 ML BOTTLE ONE (10:00)
[2020-03-29] MEDS ORDERED: COLLAGENASE 5 GM TUBE UD TP ONE (10:01)
== END 2020-03-29 23:59 | disposition home health service (06) ==
LOC: WOU 09:50
PROVIDERS: ATTEND Podiatrist Foot & Ankle Surgery
DX: I70.244 Atherosclerosis of native arteries of left leg with ulceration of heel and midfoot (principal); I70.234 Atherosclerosis of native arteries of right leg with ulceration of heel and midfoot; L97.426 Non-pressure chronic ulcer of left heel and midfoot with bone involvement without evidence of necrosis; L97.413 Non-pressure chronic ulcer of right heel and midfoot with necrosis of muscle; I87.2 Venous insufficiency (chronic) (peripheral); Z79.82 Long term (current) use of aspirin
CPT/HCPCS: 11043; 15275; Q4110

== ENCOUNTER 2020-04-05 09:45 | Outpatient (CLI) | payer MEDICARE, OTHER ==
[2020-04-05] MEDS ORDERED: COLLAGENASE 5 GM TUBE UD TP ONE (10:25)
== END 2020-04-05 23:59 | disposition home health service (06) ==
LOC: WOU 09:45
PROVIDERS: ATTEND Podiatrist Foot & Ankle Surgery
DX: I70.244 Atherosclerosis of native arteries of left leg with ulceration of heel and midfoot (principal); I70.234 Atherosclerosis of native arteries of right leg with ulceration of heel and midfoot; L97.426 Non-pressure chronic ulcer of left heel and midfoot with bone involvement without evidence of necrosis; L97.416 Non-pressure chronic ulcer of right heel and midfoot with bone involvement without evidence of necrosis; I87.2 Venous insufficiency (chronic) (peripheral); Z79.82 Long term (current) use of aspirin
CPT/HCPCS: 11044; 11047; 15275; Q4110

== ENCOUNTER 2020-04-12 10:10 | Outpatient (CLI) | payer MEDICARE, OTHER ==
[2020-04-12] MEDS ORDERED: LIDOCAINE SOLN 4% 50 ML BOTTLE ONE (10:35)
[2020-04-12] MEDS ORDERED: DAKINS HALF STRENGTH (0.25%) 480 ML BOTTLE ONE (10:35)
== END 2020-04-12 23:59 | disposition home health service (06) ==
LOC: WOU 10:10
PROVIDERS: ATTEND Podiatrist Foot & Ankle Surgery
DX: I70.244 Atherosclerosis of native arteries of left leg with ulceration of heel and midfoot (principal); I70.234 Atherosclerosis of native arteries of right leg with ulceration of heel and midfoot; I70.245 Atherosclerosis of native arteries of left leg with ulceration of other part of foot; L97.426 Non-pressure chronic ulcer of left heel and midfoot with bone involvement without evidence of necrosis; L97.416 Non-pressure chronic ulcer of right heel and midfoot with bone involvement without evidence of necrosis; L97.522 Non-pressure chronic ulcer of other part of left foot with fat layer exposed; I87.2 Venous insufficiency (chronic) (peripheral); Z79.82 Long term (current) use of aspirin; Z99.3 Dependence on wheelchair
CPT/HCPCS: 11042; 11044; 15275; 87070; 87075; A6210; Q4110

== ENCOUNTER 2020-04-19 09:40 | Outpatient (CLI) | payer MEDICARE, OTHER ==
[2020-04-19] MEDS ORDERED: LIDOCAINE SOLN 4% 50 ML BOTTLE ONE (10:02)
[2020-04-19] MEDS ORDERED: SILVER SULFADIAZINE CREAM 25 GM TUBE ONE (10:46)
== END 2020-04-19 23:59 | disposition home health service (06) ==
LOC: WOU 09:40
PROVIDERS: ATTEND Podiatrist Foot & Ankle Surgery
DX: I70.244 Atherosclerosis of native arteries of left leg with ulceration of heel and midfoot (principal); I70.234 Atherosclerosis of native arteries of right leg with ulceration of heel and midfoot; I70.245 Atherosclerosis of native arteries of left leg with ulceration of other part of foot; L97.426 Non-pressure chronic ulcer of left heel and midfoot with bone involvement without evidence of necrosis; L97.416 Non-pressure chronic ulcer of right heel and midfoot with bone involvement without evidence of necrosis; L97.522 Non-pressure chronic ulcer of other part of left foot with fat layer exposed; I87.2 Venous insufficiency (chronic) (peripheral); Z99.3 Dependence on wheelchair; Z79.82 Long term (current) use of aspirin
CPT/HCPCS: 11042; 11044; 11047; 87070; 87075; 87077; 87186 ×3; A6210

== ENCOUNTER 2020-04-26 09:35 | Outpatient (CLI) | payer MEDICARE, OTHER ==
[2020-04-26] MEDS ORDERED: LIDOCAINE SOLN 4% 50 ML BOTTLE ONE (09:40)
[2020-04-26] MEDS ORDERED: COLLAGENASE 5 GM TUBE UD TP ONE (10:43)
== END 2020-04-26 23:59 | disposition home health service (06) ==
LOC: WOU 09:35
PROVIDERS: ATTEND Podiatrist Foot & Ankle Surgery
DX: I70.244 Atherosclerosis of native arteries of left leg with ulceration of heel and midfoot (principal); I70.234 Atherosclerosis of native arteries of right leg with ulceration of heel and midfoot; L97.426 Non-pressure chronic ulcer of left heel and midfoot with bone involvement without evidence of necrosis; L97.416 Non-pressure chronic ulcer of right heel and midfoot with bone involvement without evidence of necrosis; L89.153 Pressure ulcer of sacral region, stage 3; L89.322 Pressure ulcer of left buttock, stage 2; I87.2 Venous insufficiency (chronic) (peripheral); Z99.3 Dependence on wheelchair; Z79.82 Long term (current) use of aspirin
CPT/HCPCS: 11044; 11047; 87070-TC; 87075-TC; 87186-TC

== ENCOUNTER 2020-05-03 10:10 | Outpatient (CLI) | payer MEDICARE, OTHER ==
[2020-05-03] MEDS ORDERED: LIDOCAINE SOLN 4% 50 ML BOTTLE ONE (10:20)
[2020-05-03] MEDS ORDERED: COLLAGENASE 5 GM TUBE UD TP ONE (10:59)
== END 2020-05-03 23:59 | disposition home health service (06) ==
LOC: WOU 10:10
PROVIDERS: ATTEND Podiatrist Foot & Ankle Surgery
DX: I70.244 Atherosclerosis of native arteries of left leg with ulceration of heel and midfoot (principal); I70.234 Atherosclerosis of native arteries of right leg with ulceration of heel and midfoot; I70.245 Atherosclerosis of native arteries of left leg with ulceration of other part of foot; L97.426 Non-pressure chronic ulcer of left heel and midfoot with bone involvement without evidence of necrosis; L97.416 Non-pressure chronic ulcer of right heel and midfoot with bone involvement without evidence of necrosis; L97.522 Non-pressure chronic ulcer of other part of left foot with fat layer exposed; L89.322 Pressure ulcer of left buttock, stage 2; Z79.82 Long term (current) use of aspirin
CPT/HCPCS: 11042; 11044; 11047; 15275; A6210; Q4196

== ENCOUNTER 2020-05-10 09:50 | Outpatient (CLI) | payer MEDICARE, OTHER ==
[2020-05-10] MEDS ORDERED: LIDOCAINE SOLN 4% 50 ML BOTTLE ONE (10:03)
[2020-05-10] MEDS ORDERED: COLLAGENASE 5 GM TUBE UD TP ONE (10:35)
[2020-05-10] MEDS ORDERED: Z GUARD REMEDY 2 OZ OINT TP ONE (10:43)
== END 2020-05-10 23:59 | disposition home health service (06) ==
LOC: WOU 09:50
PROVIDERS: ATTEND Podiatrist Foot & Ankle Surgery
DX: I70.244 Atherosclerosis of native arteries of left leg with ulceration of heel and midfoot (principal); I70.234 Atherosclerosis of native arteries of right leg with ulceration of heel and midfoot; L97.426 Non-pressure chronic ulcer of left heel and midfoot with bone involvement without evidence of necrosis; L97.416 Non-pressure chronic ulcer of right heel and midfoot with bone involvement without evidence of necrosis; I87.2 Venous insufficiency (chronic) (peripheral); Z79.82 Long term (current) use of aspirin
CPT/HCPCS: 11043; 11046; 15275; Q4196

== ENCOUNTER 2020-05-17 08:30 | Outpatient (CLI) | payer MEDICARE, OTHER ==
[2020-05-17] MEDS ORDERED: LIDOCAINE SOLN 4% 50 ML BOTTLE ONE (08:42)
[2020-05-17] MEDS ORDERED: SILVER NITRATE APPLICATOR 1 EA BOX ONE (09:29)
[2020-05-17] MEDS ORDERED: UREA 10% -AHA 4% CREAM 57 GM TUBE ONE (09:37)
== END 2020-05-17 23:59 | disposition home health service (06) ==
LOC: WOU 08:30
PROVIDERS: ATTEND Podiatrist Foot & Ankle Surgery
DX: I70.244 Atherosclerosis of native arteries of left leg with ulceration of heel and midfoot (principal); I70.234 Atherosclerosis of native arteries of right leg with ulceration of heel and midfoot; L97.425 Non-pressure chronic ulcer of left heel and midfoot with muscle involvement without evidence of necrosis; L97.416 Non-pressure chronic ulcer of right heel and midfoot with bone involvement without evidence of necrosis; I87.2 Venous insufficiency (chronic) (peripheral); Z87.891 Personal history of nicotine dependence; Z99.3 Dependence on wheelchair; Z79.82 Long term (current) use of aspirin
CPT/HCPCS: 11042; 11045; 15275; Q4196

== ENCOUNTER 2020-05-31 09:50 | Outpatient (CLI) | payer MEDICARE, OTHER | END 2020-05-31 23:59 | disposition home health service (06) | LOC: WOU 09:50 | PROVIDERS: ATTEND Podiatrist Foot & Ankle Surgery | DX: I70.244 Atherosclerosis of native arteries of left leg with ulceration of heel and midfoot (principal); I70.234 Atherosclerosis of native arteries of right leg with ulceration of heel and midfoot; L97.425 Non-pressure chronic ulcer of left heel and midfoot with muscle involvement without evidence of necrosis; L97.416 Non-pressure chronic ulcer of right heel and midfoot with bone involvement without evidence of necrosis; I87.2 Venous insufficiency (chronic) (peripheral); Z79.82 Long term (current) use of aspirin; Z99.3 Dependence on wheelchair | CPT/HCPCS: 11043; 11046; 15275; Q4196 ==

== ENCOUNTER 2020-06-07 10:00 | Outpatient (CLI) | payer MEDICARE, OTHER ==
[2020-06-07] MEDS ORDERED: LIDOCAINE SOLN 4% 50 ML BOTTLE ONE (10:06)
== END 2020-06-07 23:59 | disposition home health service (06) ==
LOC: WOU 10:00
PROVIDERS: ATTEND Podiatrist Foot & Ankle Surgery
DX: I70.244 Atherosclerosis of native arteries of left leg with ulceration of heel and midfoot (principal); I70.234 Atherosclerosis of native arteries of right leg with ulceration of heel and midfoot; I70.245 Atherosclerosis of native arteries of left leg with ulceration of other part of foot; L97.425 Non-pressure chronic ulcer of left heel and midfoot with muscle involvement without evidence of necrosis; L97.416 Non-pressure chronic ulcer of right heel and midfoot with bone involvement without evidence of necrosis; L97.523 Non-pressure chronic ulcer of other part of left foot with necrosis of muscle; I87.2 Venous insufficiency (chronic) (peripheral); Z79.82 Long term (current) use of aspirin
CPT/HCPCS: 11043; 11046; 15275; Q4196

== ENCOUNTER 2020-06-14 10:05 | Outpatient (CLI) | payer MEDICARE, OTHER ==
[2020-06-14] MEDS ORDERED: LIDOCAINE SOLN 4% 50 ML BOTTLE ONE (10:10)
== END 2020-06-14 23:59 | disposition home health service (06) ==
LOC: WOU 10:05
PROVIDERS: ATTEND Podiatrist Foot & Ankle Surgery
DX: I70.244 Atherosclerosis of native arteries of left leg with ulceration of heel and midfoot (principal); I70.234 Atherosclerosis of native arteries of right leg with ulceration of heel and midfoot; I70.245 Atherosclerosis of native arteries of left leg with ulceration of other part of foot; L97.426 Non-pressure chronic ulcer of left heel and midfoot with bone involvement without evidence of necrosis; L97.413 Non-pressure chronic ulcer of right heel and midfoot with necrosis of muscle; L97.525 Non-pressure chronic ulcer of other part of left foot with muscle involvement without evidence of necrosis; I87.2 Venous insufficiency (chronic) (peripheral)
CPT/HCPCS: 11042; 11043; 11046; 15275; Q4196

== ENCOUNTER 2020-06-28 10:40 | Outpatient (CLI) | payer MEDICARE, OTHER | END 2020-06-28 23:59 | disposition home health service (06) | LOC: WOU 10:40 | PROVIDERS: ATTEND Podiatrist Foot & Ankle Surgery | DX: I70.244 Atherosclerosis of native arteries of left leg with ulceration of heel and midfoot (principal); I70.234 Atherosclerosis of native arteries of right leg with ulceration of heel and midfoot; I70.245 Atherosclerosis of native arteries of left leg with ulceration of other part of foot; L97.425 Non-pressure chronic ulcer of left heel and midfoot with muscle involvement without evidence of necrosis; L97.413 Non-pressure chronic ulcer of right heel and midfoot with necrosis of muscle; L97.522 Non-pressure chronic ulcer of other part of left foot with fat layer exposed; I87.2 Venous insufficiency (chronic) (peripheral); E11.9 Type 2 diabetes mellitus without complications; Z79.84 Long term (current) use of oral hypoglycemic drugs | CPT/HCPCS: 11042; 11043; 15275; Q4196 ==

== ENCOUNTER 2020-07-05 09:55 | Outpatient (CLI) | payer MEDICARE, OTHER ==
[2020-07-05] MEDS ORDERED: LIDOCAINE SOLN 4% 50 ML BOTTLE ONE (10:00)
[2020-07-05] MEDS ORDERED: UREA 10% -AHA 4% CREAM 57 GM TUBE ONE (10:31)
== END 2020-07-05 23:59 | disposition home health service (06) ==
LOC: WOU 09:55
PROVIDERS: ATTEND Podiatrist Foot & Ankle Surgery
DX: I70.244 Atherosclerosis of native arteries of left leg with ulceration of heel and midfoot (principal); I70.234 Atherosclerosis of native arteries of right leg with ulceration of heel and midfoot; I70.245 Atherosclerosis of native arteries of left leg with ulceration of other part of foot; L97.425 Non-pressure chronic ulcer of left heel and midfoot with muscle involvement without evidence of necrosis; L97.413 Non-pressure chronic ulcer of right heel and midfoot with necrosis of muscle; L97.522 Non-pressure chronic ulcer of other part of left foot with fat layer exposed; I87.2 Venous insufficiency (chronic) (peripheral); Z79.82 Long term (current) use of aspirin; Z99.3 Dependence on wheelchair
CPT/HCPCS: 11042; 11043

== ENCOUNTER 2020-07-12 10:00 | Outpatient (CLI) | payer MEDICARE, OTHER | END 2020-07-12 23:59 | disposition home health service (06) | LOC: WOU 10:00 | PROVIDERS: ATTEND Podiatrist Foot & Ankle Surgery | DX: I70.244 Atherosclerosis of native arteries of left leg with ulceration of heel and midfoot (principal); I70.234 Atherosclerosis of native arteries of right leg with ulceration of heel and midfoot; I70.245 Atherosclerosis of native arteries of left leg with ulceration of other part of foot; L97.425 Non-pressure chronic ulcer of left heel and midfoot with muscle involvement without evidence of necrosis; L97.413 Non-pressure chronic ulcer of right heel and midfoot with necrosis of muscle; L97.528 Non-pressure chronic ulcer of other part of left foot with other specified severity; I87.2 Venous insufficiency (chronic) (peripheral); Z79.82 Long term (current) use of aspirin | CPT/HCPCS: 11043 ==

== ENCOUNTER 2020-07-19 10:00 | Outpatient (CLI) | payer MEDICARE, OTHER | END 2020-07-19 23:59 | disposition home health service (06) | LOC: WOU 10:00 | PROVIDERS: ATTEND Podiatrist Foot & Ankle Surgery | DX: I87.311 Chronic venous hypertension (idiopathic) with ulcer of right lower extremity (principal); L97.425 Non-pressure chronic ulcer of left heel and midfoot with muscle involvement without evidence of necrosis; L97.412 Non-pressure chronic ulcer of right heel and midfoot with fat layer exposed; I87.2 Venous insufficiency (chronic) (peripheral); I73.9 Peripheral vascular disease, unspecified; Z99.3 Dependence on wheelchair; Z79.82 Long term (current) use of aspirin | CPT/HCPCS: 11042; 11043 ==

== ENCOUNTER 2020-07-26 10:00 | Outpatient (CLI) | payer MEDICARE, OTHER | END 2020-07-26 23:59 | disposition home health service (06) | LOC: WOU 10:00 | PROVIDERS: ATTEND Podiatrist Foot & Ankle Surgery | DX: I70.244 Atherosclerosis of native arteries of left leg with ulceration of heel and midfoot (principal); L97.425 Non-pressure chronic ulcer of left heel and midfoot with muscle involvement without evidence of necrosis; I70.234 Atherosclerosis of native arteries of right leg with ulceration of heel and midfoot; L97.412 Non-pressure chronic ulcer of right heel and midfoot with fat layer exposed; I87.2 Venous insufficiency (chronic) (peripheral); Z99.3 Dependence on wheelchair; Z79.82 Long term (current) use of aspirin | CPT/HCPCS: 11042; 11043 ==

== ENCOUNTER 2020-08-02 10:00 | Outpatient (CLI) | payer MEDICARE, OTHER ==
[2020-08-02] MEDS ORDERED: LIDOCAINE SOLN 4% 50 ML BOTTLE ONE (10:03)
[2020-08-02] MEDS ORDERED: BACI/NEOM/POLY B OINT PKT 1 UDPKT PACKET ONE (10:47)
== END 2020-08-02 23:59 | disposition home health service (06) ==
LOC: WOU 10:00
PROVIDERS: ATTEND Podiatrist Foot & Ankle Surgery
DX: I70.244 Atherosclerosis of native arteries of left leg with ulceration of heel and midfoot (principal); L97.425 Non-pressure chronic ulcer of left heel and midfoot with muscle involvement without evidence of necrosis; I70.234 Atherosclerosis of native arteries of right leg with ulceration of heel and midfoot; L97.412 Non-pressure chronic ulcer of right heel and midfoot with fat layer exposed; I87.2 Venous insufficiency (chronic) (peripheral); Z79.82 Long term (current) use of aspirin
CPT/HCPCS: 11042; 11043

== ENCOUNTER 2020-08-09 10:00 | Outpatient (CLI) | payer MEDICARE, OTHER ==
[2020-08-09] MEDS ORDERED: LIDOCAINE SOLN 4% 50 ML BOTTLE ONE (10:22)
== END 2020-08-09 23:59 | disposition home health service (06) ==
LOC: WOU 10:00
PROVIDERS: ATTEND Podiatrist Foot & Ankle Surgery
DX: I70.244 Atherosclerosis of native arteries of left leg with ulceration of heel and midfoot (principal); I70.234 Atherosclerosis of native arteries of right leg with ulceration of heel and midfoot; L97.426 Non-pressure chronic ulcer of left heel and midfoot with bone involvement without evidence of necrosis; L97.412 Non-pressure chronic ulcer of right heel and midfoot with fat layer exposed; I87.2 Venous insufficiency (chronic) (peripheral); Z79.82 Long term (current) use of aspirin
CPT/HCPCS: 11042; 11044

== ENCOUNTER 2020-08-16 10:00 | Outpatient (CLI) | payer MEDICARE, OTHER | END 2020-08-16 23:59 | disposition home health service (06) | LOC: WOU 10:00 | PROVIDERS: ATTEND Podiatrist Foot & Ankle Surgery | DX: I70.244 Atherosclerosis of native arteries of left leg with ulceration of heel and midfoot (principal); I70.234 Atherosclerosis of native arteries of right leg with ulceration of heel and midfoot; L97.426 Non-pressure chronic ulcer of left heel and midfoot with bone involvement without evidence of necrosis; L97.412 Non-pressure chronic ulcer of right heel and midfoot with fat layer exposed; I87.2 Venous insufficiency (chronic) (peripheral); Z79.82 Long term (current) use of aspirin; Z99.3 Dependence on wheelchair | CPT/HCPCS: 11042; 11043 ==

== ENCOUNTER 2020-08-23 09:50 | Outpatient (CLI) | payer MEDICARE, OTHER ==
[2020-08-23] MEDS ORDERED: LIDOCAINE SOLN 4% 50 ML BOTTLE ONE (09:54)
[2020-08-23] MEDS ORDERED: UREA 10% -AHA 4% CREAM 57 GM TUBE ONE (10:30)
[2020-08-23] MEDS ORDERED: COLLAGENASE 5 GM TUBE UD TP ONE (10:30)
== END 2020-08-23 23:59 | disposition home health service (06) ==
LOC: WOU 09:50
PROVIDERS: ATTEND Podiatrist Foot & Ankle Surgery
DX: I70.244 Atherosclerosis of native arteries of left leg with ulceration of heel and midfoot (principal); I70.234 Atherosclerosis of native arteries of right leg with ulceration of heel and midfoot; L97.425 Non-pressure chronic ulcer of left heel and midfoot with muscle involvement without evidence of necrosis; L97.412 Non-pressure chronic ulcer of right heel and midfoot with fat layer exposed; I87.2 Venous insufficiency (chronic) (peripheral); Z79.82 Long term (current) use of aspirin; Z99.3 Dependence on wheelchair
CPT/HCPCS: 11042; 11043

== ENCOUNTER 2020-08-30 11:00 | Outpatient (CLI) | payer MEDICARE, OTHER ==
[2020-08-30] MEDS ORDERED: LIDOCAINE SOLN 4% 50 ML BOTTLE ONE (11:03)
[2020-08-30] MEDS ORDERED: UREA 10% -AHA 4% CREAM 57 GM TUBE ONE (11:34)
== END 2020-08-30 23:59 | disposition home health service (06) ==
LOC: WOU 11:00
PROVIDERS: ATTEND Podiatrist Foot & Ankle Surgery
DX: I70.244 Atherosclerosis of native arteries of left leg with ulceration of heel and midfoot (principal); I70.234 Atherosclerosis of native arteries of right leg with ulceration of heel and midfoot; L97.425 Non-pressure chronic ulcer of left heel and midfoot with muscle involvement without evidence of necrosis; L97.412 Non-pressure chronic ulcer of right heel and midfoot with fat layer exposed; I87.2 Venous insufficiency (chronic) (peripheral); Z79.82 Long term (current) use of aspirin; Z99.3 Dependence on wheelchair
CPT/HCPCS: 11042; 11043

== ENCOUNTER 2020-09-06 10:00 | Outpatient (CLI) | payer MEDICARE, OTHER ==
[2020-09-06] MEDS ORDERED: LIDOCAINE SOLN 4% 50 ML BOTTLE ONE (10:17)
[2020-09-06] MEDS ORDERED: UREA 10% -AHA 4% CREAM 57 GM TUBE ONE (10:36)
[2020-09-06] MEDS ORDERED: BACI/NEOM/POLY B OINT PKT 1 UDPKT PACKET ONE ×2 (10:48→11:03)
== END 2020-09-06 23:59 | disposition home health service (06) ==
LOC: WOU 10:00
PROVIDERS: ATTEND Podiatrist Foot & Ankle Surgery
DX: I70.244 Atherosclerosis of native arteries of left leg with ulceration of heel and midfoot (principal); I70.234 Atherosclerosis of native arteries of right leg with ulceration of heel and midfoot; L97.425 Non-pressure chronic ulcer of left heel and midfoot with muscle involvement without evidence of necrosis; L97.412 Non-pressure chronic ulcer of right heel and midfoot with fat layer exposed; L60.0 Ingrowing nail; I87.2 Venous insufficiency (chronic) (peripheral); Z79.84 Long term (current) use of oral hypoglycemic drugs; Z79.82 Long term (current) use of aspirin
CPT/HCPCS: 11042; 11043; 11730

== ENCOUNTER 2020-09-13 10:00 | Outpatient (CLI) | payer MEDICARE, OTHER ==
[~2020-09-13 10:00] MED LIST changes: +LIDOCAINE SOLN 4% 50 ML BOTTLE ONE
[2020-09-13] MEDS ORDERED: UREA 10% -AHA 4% CREAM 57 GM TUBE ONE (10:01)
[2020-09-13] MEDS ORDERED: BACI/NEOM/POLY B OINT PKT 1 UDPKT PACKET ONE (10:37)
== END 2020-09-13 23:59 | disposition home health service (06) ==
LOC: WOU 10:00
PROVIDERS: ATTEND Podiatrist Foot & Ankle Surgery
DX: I70.244 Atherosclerosis of native arteries of left leg with ulceration of heel and midfoot (principal); I70.243 Atherosclerosis of native arteries of left leg with ulceration of ankle; L97.425 Non-pressure chronic ulcer of left heel and midfoot with muscle involvement without evidence of necrosis; L97.412 Non-pressure chronic ulcer of right heel and midfoot with fat layer exposed; I87.2 Venous insufficiency (chronic) (peripheral); L60.0 Ingrowing nail; L60.1 Onycholysis; Z79.82 Long term (current) use of aspirin
CPT/HCPCS: 11042; 11043

== ENCOUNTER 2020-09-20 09:50 | Outpatient (CLI) | payer MEDICARE, OTHER ==
[~2020-09-20 09:50] MED LIST changes: -LIDOCAINE SOLN 4% 50 ML BOTTLE ONE
[2020-09-20] MEDS ORDERED: LIDOCAINE SOLN 4% 50 ML BOTTLE ONE (09:57)
== END 2020-09-20 23:59 | disposition home health service (06) ==
LOC: WOU 09:50
PROVIDERS: ATTEND Podiatrist Foot & Ankle Surgery
DX: I70.244 Atherosclerosis of native arteries of left leg with ulceration of heel and midfoot (principal); L97.425 Non-pressure chronic ulcer of left heel and midfoot with muscle involvement without evidence of necrosis; I70.234 Atherosclerosis of native arteries of right leg with ulceration of heel and midfoot; L97.412 Non-pressure chronic ulcer of right heel and midfoot with fat layer exposed; L60.1 Onycholysis; Z99.3 Dependence on wheelchair; Z79.82 Long term (current) use of aspirin; L60.0 Ingrowing nail
CPT/HCPCS: 11042; 11043

== ENCOUNTER 2020-09-27 10:00 | Outpatient (CLI) | payer MEDICARE, OTHER ==
[2020-09-27] MEDS ORDERED: LIDOCAINE SOLN 4% 50 ML BOTTLE ONE (10:10)
[2020-09-27] MEDS ORDERED: BACITRACIN ZINC OINT PACKET 1 EA PACKET TP ONE ×2 (10:42→10:47)
== END 2020-09-27 23:59 | disposition home health service (06) ==
LOC: WOU 10:00
PROVIDERS: ATTEND Podiatrist Foot & Ankle Surgery
DX: I70.244 Atherosclerosis of native arteries of left leg with ulceration of heel and midfoot (principal); L97.422 Non-pressure chronic ulcer of left heel and midfoot with fat layer exposed; I70.234 Atherosclerosis of native arteries of right leg with ulceration of heel and midfoot; L97.412 Non-pressure chronic ulcer of right heel and midfoot with fat layer exposed; E11.621 Type 2 diabetes mellitus with foot ulcer; L97.522 Non-pressure chronic ulcer of other part of left foot with fat layer exposed; I87.2 Venous insufficiency (chronic) (peripheral); L60.0 Ingrowing nail; Z99.3 Dependence on wheelchair; Z79.84 Long term (current) use of oral hypoglycemic drugs; Z79.82 Long term (current) use of aspirin
CPT/HCPCS: 11042; 11045

== ENCOUNTER 2020-10-04 09:45 | Outpatient (CLI) | payer MEDICARE, OTHER ==
[2020-10-04] MEDS ORDERED: LIDOCAINE SOLN 4% 50 ML BOTTLE ONE (09:51)
[2020-10-04] MEDS ORDERED: BACITRACIN ZINC OINT PACKET 1 EA PACKET TP ONE (10:33)
== END 2020-10-04 23:59 | disposition home health service (06) ==
LOC: WOU 09:45
PROVIDERS: ATTEND Podiatrist Foot & Ankle Surgery
DX: I70.244 Atherosclerosis of native arteries of left leg with ulceration of heel and midfoot (principal); L97.422 Non-pressure chronic ulcer of left heel and midfoot with fat layer exposed; I70.234 Atherosclerosis of native arteries of right leg with ulceration of heel and midfoot; L97.412 Non-pressure chronic ulcer of right heel and midfoot with fat layer exposed; E11.621 Type 2 diabetes mellitus with foot ulcer; L97.522 Non-pressure chronic ulcer of other part of left foot with fat layer exposed; Z79.84 Long term (current) use of oral hypoglycemic drugs; I87.2 Venous insufficiency (chronic) (peripheral); Z79.82 Long term (current) use of aspirin; L60.3 Nail dystrophy
CPT/HCPCS: 11042; 11045

== ENCOUNTER 2020-10-11 10:00 | Outpatient (CLI) | payer MEDICARE, OTHER ==
[2020-10-11] MEDS ORDERED: LIDOCAINE SOLN 4% 50 ML BOTTLE ONE (10:22)
== END 2020-10-11 23:59 | disposition home health service (06) ==
LOC: WOU 10:00
PROVIDERS: ATTEND Podiatrist Foot & Ankle Surgery
DX: I70.244 Atherosclerosis of native arteries of left leg with ulceration of heel and midfoot (principal); L97.425 Non-pressure chronic ulcer of left heel and midfoot with muscle involvement without evidence of necrosis; L97.822 Non-pressure chronic ulcer of other part of left lower leg with fat layer exposed; I70.234 Atherosclerosis of native arteries of right leg with ulceration of heel and midfoot; L97.415 Non-pressure chronic ulcer of right heel and midfoot with muscle involvement without evidence of necrosis; I87.2 Venous insufficiency (chronic) (peripheral); L60.3 Nail dystrophy; E11.9 Type 2 diabetes mellitus without complications; Z79.84 Long term (current) use of oral hypoglycemic drugs; Z79.82 Long term (current) use of aspirin
CPT/HCPCS: 11042; 11045

== ENCOUNTER 2020-10-18 10:00 | Outpatient (CLI) | payer MEDICARE, OTHER ==
[2020-10-18] MEDS ORDERED: LIDOCAINE SOLN 4% 50 ML BOTTLE ONE (10:16)
== END 2020-10-18 23:59 | disposition home health service (06) ==
LOC: WOU 10:00
PROVIDERS: ATTEND Podiatrist Foot & Ankle Surgery
DX: I70.244 Atherosclerosis of native arteries of left leg with ulceration of heel and midfoot (principal); L97.422 Non-pressure chronic ulcer of left heel and midfoot with fat layer exposed; I70.243 Atherosclerosis of native arteries of left leg with ulceration of ankle; L97.412 Non-pressure chronic ulcer of right heel and midfoot with fat layer exposed; I70.248 Atherosclerosis of native arteries of left leg with ulceration of other part of lower leg; L97.822 Non-pressure chronic ulcer of other part of left lower leg with fat layer exposed; I87.2 Venous insufficiency (chronic) (peripheral); L60.3 Nail dystrophy; Z99.3 Dependence on wheelchair; Z79.82 Long term (current) use of aspirin
CPT/HCPCS: 11042; 11045

== ENCOUNTER 2020-10-25 10:00 | Outpatient (CLI) | payer MEDICARE, OTHER ==
[2020-10-25] MEDS ORDERED: LIDOCAINE SOLN 4% 50 ML BOTTLE ONE (10:08)
== END 2020-10-25 23:59 | disposition home health service (06) ==
LOC: WOU 10:00
PROVIDERS: ATTEND Podiatrist Foot & Ankle Surgery
DX: I70.244 Atherosclerosis of native arteries of left leg with ulceration of heel and midfoot (principal); L97.422 Non-pressure chronic ulcer of left heel and midfoot with fat layer exposed; I70.243 Atherosclerosis of native arteries of left leg with ulceration of ankle; L97.412 Non-pressure chronic ulcer of right heel and midfoot with fat layer exposed; I70.238 Atherosclerosis of native arteries of right leg with ulceration of other part of lower leg; L97.811 Non-pressure chronic ulcer of other part of right lower leg limited to breakdown of skin; I87.2 Venous insufficiency (chronic) (peripheral); L60.3 Nail dystrophy; Z79.82 Long term (current) use of aspirin; Z99.3 Dependence on wheelchair
CPT/HCPCS: 11042

== ENCOUNTER 2020-11-01 10:00 | Outpatient (CLI) | payer MEDICARE, OTHER ==
[2020-11-01] MEDS ORDERED: UREA 10% -AHA 4% CREAM 57 GM TUBE ONE (10:21)
== END 2020-11-01 23:59 | disposition home health service (06) ==
LOC: WOU 10:00
PROVIDERS: ATTEND Podiatrist Foot & Ankle Surgery
DX: I70.244 Atherosclerosis of native arteries of left leg with ulceration of heel and midfoot (principal); L97.422 Non-pressure chronic ulcer of left heel and midfoot with fat layer exposed; I70.234 Atherosclerosis of native arteries of right leg with ulceration of heel and midfoot; L97.412 Non-pressure chronic ulcer of right heel and midfoot with fat layer exposed; I70.238 Atherosclerosis of native arteries of right leg with ulceration of other part of lower leg; L97.812 Non-pressure chronic ulcer of other part of right lower leg with fat layer exposed; I87.2 Venous insufficiency (chronic) (peripheral); L60.3 Nail dystrophy; Z79.82 Long term (current) use of aspirin
CPT/HCPCS: 11042

== ENCOUNTER 2020-11-08 10:00 | Outpatient (CLI) | payer MEDICARE, OTHER | END 2020-11-08 23:59 | disposition home health service (06) | LOC: WOU 10:00 | PROVIDERS: ATTEND Podiatrist Foot & Ankle Surgery | DX: I70.244 Atherosclerosis of native arteries of left leg with ulceration of heel and midfoot (principal); L97.422 Non-pressure chronic ulcer of left heel and midfoot with fat layer exposed; I70.234 Atherosclerosis of native arteries of right leg with ulceration of heel and midfoot; L97.412 Non-pressure chronic ulcer of right heel and midfoot with fat layer exposed; I87.2 Venous insufficiency (chronic) (peripheral); L60.3 Nail dystrophy; R73.03 Prediabetes; Z79.84 Long term (current) use of oral hypoglycemic drugs; Z79.82 Long term (current) use of aspirin | CPT/HCPCS: 11042 ==

== ENCOUNTER 2020-11-15 10:00 | Outpatient (CLI) | payer MEDICARE, OTHER ==
[2020-11-15] MEDS ORDERED: LIDOCAINE SOLN 4% 50 ML BOTTLE ONE (10:12)
== END 2020-11-15 23:59 | disposition home health service (06) ==
LOC: WOU 10:00
PROVIDERS: ATTEND Podiatrist Foot & Ankle Surgery
DX: I70.244 Atherosclerosis of native arteries of left leg with ulceration of heel and midfoot (principal); I70.234 Atherosclerosis of native arteries of right leg with ulceration of heel and midfoot; L97.422 Non-pressure chronic ulcer of left heel and midfoot with fat layer exposed; L97.412 Non-pressure chronic ulcer of right heel and midfoot with fat layer exposed; I87.2 Venous insufficiency (chronic) (peripheral); L60.3 Nail dystrophy; Z99.3 Dependence on wheelchair; Z79.82 Long term (current) use of aspirin
CPT/HCPCS: 11042

== ENCOUNTER 2020-11-29 10:00 | Outpatient (CLI) | payer MEDICARE, OTHER ==
[2020-11-29] MEDS ORDERED: LIDOCAINE SOLN 4% 50 ML BOTTLE ONE (10:27)
== END 2020-11-29 23:59 | disposition home health service (06) ==
LOC: WOU 10:00
PROVIDERS: ATTEND Podiatrist Foot & Ankle Surgery
DX: I70.234 Atherosclerosis of native arteries of right leg with ulceration of heel and midfoot (principal); L97.412 Non-pressure chronic ulcer of right heel and midfoot with fat layer exposed; I87.2 Venous insufficiency (chronic) (peripheral); L60.3 Nail dystrophy; Z79.02 Long term (current) use of antithrombotics/antiplatelets; Z99.3 Dependence on wheelchair
CPT/HCPCS: 11042

== ENCOUNTER 2020-12-06 10:10 | Outpatient (CLI) | payer MEDICARE, OTHER | END 2020-12-06 23:59 | disposition home health service (06) | LOC: WOU 10:10 | PROVIDERS: ATTEND Podiatrist Foot & Ankle Surgery | DX: I70.234 Atherosclerosis of native arteries of right leg with ulceration of heel and midfoot (principal); L97.412 Non-pressure chronic ulcer of right heel and midfoot with fat layer exposed; I87.2 Venous insufficiency (chronic) (peripheral); L60.3 Nail dystrophy; Z99.3 Dependence on wheelchair; Z79.82 Long term (current) use of aspirin | CPT/HCPCS: 11042 ==

== ENCOUNTER 2020-12-13 10:00 | Outpatient (CLI) | payer MEDICARE, OTHER | END 2020-12-13 23:59 | disposition home health service (06) | LOC: WOU 10:00 | PROVIDERS: ATTEND Podiatrist Foot & Ankle Surgery | DX: I70.234 Atherosclerosis of native arteries of right leg with ulceration of heel and midfoot (principal); L97.412 Non-pressure chronic ulcer of right heel and midfoot with fat layer exposed; I87.2 Venous insufficiency (chronic) (peripheral); L60.3 Nail dystrophy; Z79.82 Long term (current) use of aspirin | CPT/HCPCS: 11042 ==

== ENCOUNTER 2020-12-20 10:00 | Outpatient (CLI) | payer MEDICARE, OTHER ==
[2020-12-20] MEDS ORDERED: UREA 10% -AHA 4% CREAM 57 GM TUBE ONE (10:46)
== END 2020-12-20 23:59 | disposition home health service (06) ==
LOC: WOU 10:00
PROVIDERS: ATTEND Podiatrist Foot & Ankle Surgery
DX: I70.234 Atherosclerosis of native arteries of right leg with ulceration of heel and midfoot (principal); L97.412 Non-pressure chronic ulcer of right heel and midfoot with fat layer exposed; I87.2 Venous insufficiency (chronic) (peripheral); L60.3 Nail dystrophy; Z79.82 Long term (current) use of aspirin; Z99.3 Dependence on wheelchair
CPT/HCPCS: 11042

== ENCOUNTER 2021-01-03 10:15 | Outpatient (CLI) | payer MEDICARE, OTHER | END 2021-01-03 23:59 | disposition home health service (06) | LOC: WOU 10:15 | PROVIDERS: ATTEND Podiatrist Foot & Ankle Surgery | DX: I70.234 Atherosclerosis of native arteries of right leg with ulceration of heel and midfoot (principal); L97.412 Non-pressure chronic ulcer of right heel and midfoot with fat layer exposed; I87.2 Venous insufficiency (chronic) (peripheral); L60.3 Nail dystrophy; Z99.3 Dependence on wheelchair; Z79.82 Long term (current) use of aspirin | CPT/HCPCS: 11042 ==

== ENCOUNTER 2021-01-10 10:00 | Outpatient (CLI) | payer MEDICARE, OTHER | END 2021-01-10 23:59 | disposition home health service (06) | LOC: WOU 10:00 | PROVIDERS: ATTEND Podiatrist Foot & Ankle Surgery | DX: I70.234 Atherosclerosis of native arteries of right leg with ulceration of heel and midfoot (principal); L97.412 Non-pressure chronic ulcer of right heel and midfoot with fat layer exposed; I87.2 Venous insufficiency (chronic) (peripheral); L60.3 Nail dystrophy; Z79.82 Long term (current) use of aspirin | CPT/HCPCS: 11042 ==

== ENCOUNTER 2021-01-17 10:00 | Outpatient (CLI) | payer MEDICARE, OTHER | END 2021-01-17 23:59 | disposition home health service (06) | LOC: WOU 10:00 | PROVIDERS: ATTEND Podiatrist Foot & Ankle Surgery | DX: I70.234 Atherosclerosis of native arteries of right leg with ulceration of heel and midfoot (principal); L97.412 Non-pressure chronic ulcer of right heel and midfoot with fat layer exposed; I87.2 Venous insufficiency (chronic) (peripheral); L60.3 Nail dystrophy; Z87.891 Personal history of nicotine dependence; Z79.84 Long term (current) use of oral hypoglycemic drugs; Z79.82 Long term (current) use of aspirin | CPT/HCPCS: 11042 ==

== ENCOUNTER 2021-01-24 10:30 | Outpatient (CLI) | payer MEDICARE, OTHER | END 2021-01-24 23:59 | disposition home health service (06) | LOC: WOU 10:30 | PROVIDERS: ATTEND Podiatrist Foot & Ankle Surgery | DX: I70.244 Atherosclerosis of native arteries of left leg with ulceration of heel and midfoot (principal); L97.422 Non-pressure chronic ulcer of left heel and midfoot with fat layer exposed; I70.234 Atherosclerosis of native arteries of right leg with ulceration of heel and midfoot; L97.412 Non-pressure chronic ulcer of right heel and midfoot with fat layer exposed; I87.2 Venous insufficiency (chronic) (peripheral); L60.3 Nail dystrophy; Z99.3 Dependence on wheelchair; Z79.82 Long term (current) use of aspirin | CPT/HCPCS: 11042; 11043 ==

== ENCOUNTER 2021-01-31 10:00 | Outpatient (CLI) | payer MEDICARE, OTHER | END 2021-01-31 23:59 | disposition home health service (06) | LOC: WOU 10:00 | PROVIDERS: ATTEND Podiatrist Foot & Ankle Surgery | DX: I70.244 Atherosclerosis of native arteries of left leg with ulceration of heel and midfoot (principal); L97.422 Non-pressure chronic ulcer of left heel and midfoot with fat layer exposed; I70.234 Atherosclerosis of native arteries of right leg with ulceration of heel and midfoot; L97.412 Non-pressure chronic ulcer of right heel and midfoot with fat layer exposed; L60.3 Nail dystrophy; I87.311 Chronic venous hypertension (idiopathic) with ulcer of right lower extremity; Z99.3 Dependence on wheelchair; Z91.81 History of falling; F03.90 Unspecified dementia, unspecified severity, without behavioral disturbance, psychotic disturbance, mood disturbance, and anxiety; Z86.73 Personal history of transient ischemic attack (TIA), and cerebral infarction without residual deficits | CPT/HCPCS: 11042 ==

== ENCOUNTER 2021-02-07 10:00 | Outpatient (CLI) | payer MEDICARE, OTHER ==
[2021-02-07] MEDS ORDERED: LIDOCAINE SOLN 4% 50 ML BOTTLE ONE (10:51)
== END 2021-02-07 23:59 | disposition home health service (06) ==
LOC: WOU 10:00
PROVIDERS: ATTEND Podiatrist Foot & Ankle Surgery
DX: I70.244 Atherosclerosis of native arteries of left leg with ulceration of heel and midfoot (principal); L97.422 Non-pressure chronic ulcer of left heel and midfoot with fat layer exposed; I70.234 Atherosclerosis of native arteries of right leg with ulceration of heel and midfoot; L97.412 Non-pressure chronic ulcer of right heel and midfoot with fat layer exposed; L60.3 Nail dystrophy; I87.311 Chronic venous hypertension (idiopathic) with ulcer of right lower extremity; Z99.3 Dependence on wheelchair; Z86.73 Personal history of transient ischemic attack (TIA), and cerebral infarction without residual deficits; F03.90 Unspecified dementia, unspecified severity, without behavioral disturbance, psychotic disturbance, mood disturbance, and anxiety; Z88.2 Allergy status to sulfonamides; Z91.040 Latex allergy status
CPT/HCPCS: 11042

== ENCOUNTER 2021-02-14 10:00 | Outpatient (CLI) | payer MEDICARE, OTHER | END 2021-02-14 23:59 | disposition home health service (06) | LOC: WOU 10:00 | PROVIDERS: ATTEND Podiatrist Foot & Ankle Surgery | DX: I70.244 Atherosclerosis of native arteries of left leg with ulceration of heel and midfoot (principal); L97.422 Non-pressure chronic ulcer of left heel and midfoot with fat layer exposed; I70.234 Atherosclerosis of native arteries of right leg with ulceration of heel and midfoot; L97.412 Non-pressure chronic ulcer of right heel and midfoot with fat layer exposed; I87.311 Chronic venous hypertension (idiopathic) with ulcer of right lower extremity; I87.2 Venous insufficiency (chronic) (peripheral); L60.3 Nail dystrophy; Z86.73 Personal history of transient ischemic attack (TIA), and cerebral infarction without residual deficits; F03.90 Unspecified dementia, unspecified severity, without behavioral disturbance, psychotic disturbance, mood disturbance, and anxiety; Z99.3 Dependence on wheelchair; Z79.82 Long term (current) use of aspirin; Z79.899 Other long term (current) drug therapy | CPT/HCPCS: 11042; 11045 ==

== ENCOUNTER 2021-02-21 10:10 | Outpatient (CLI) | payer MEDICARE, OTHER ==
[2021-02-21] MEDS ORDERED: LIDOCAINE SOLN 4% 50 ML BOTTLE ONE (10:34)
== END 2021-02-21 23:59 | disposition home health service (06) ==
LOC: WOU 10:10
PROVIDERS: ATTEND Podiatrist Foot & Ankle Surgery
DX: I70.244 Atherosclerosis of native arteries of left leg with ulceration of heel and midfoot (principal); L97.422 Non-pressure chronic ulcer of left heel and midfoot with fat layer exposed; I70.234 Atherosclerosis of native arteries of right leg with ulceration of heel and midfoot; L97.412 Non-pressure chronic ulcer of right heel and midfoot with fat layer exposed; I87.2 Venous insufficiency (chronic) (peripheral); I87.311 Chronic venous hypertension (idiopathic) with ulcer of right lower extremity; L60.3 Nail dystrophy; Z99.3 Dependence on wheelchair; F03.90 Unspecified dementia, unspecified severity, without behavioral disturbance, psychotic disturbance, mood disturbance, and anxiety; Z86.73 Personal history of transient ischemic attack (TIA), and cerebral infarction without residual deficits; Z79.82 Long term (current) use of aspirin; Z79.899 Other long term (current) drug therapy
CPT/HCPCS: 11042; 11045

== ENCOUNTER 2021-02-24 13:00 | Outpatient (CLI) | payer MEDICARE, OTHER ==
[2021-02-24] MEDS ORDERED: MUPIROCIN 2% CREAM 15 GM TUBE TP ONE (13:27)
[2021-02-24] MEDS ORDERED: HYDROCORTISONE 1% CREAM 28.35 GM TUBE TP ONE (13:28)
[2021-02-24] MEDS ORDERED: CLOTRIMAZOLE 1% 15 GM TUBE TP ONE (13:28)
== END 2021-02-24 23:59 | disposition home health service (06) ==
LOC: WOU 13:00
PROVIDERS: ATTEND Surgery
DX: L02.225 Furuncle of perineum (principal); L22 Diaper dermatitis; L89.91 Pressure ulcer of unspecified site, stage 1; I87.2 Venous insufficiency (chronic) (peripheral); I73.9 Peripheral vascular disease, unspecified; Z79.84 Long term (current) use of oral hypoglycemic drugs; Z79.82 Long term (current) use of aspirin; Z99.3 Dependence on wheelchair; Z87.891 Personal history of nicotine dependence
CPT/HCPCS: G0463

== ENCOUNTER 2021-03-03 13:00 | Outpatient (CLI) | payer MEDICARE, OTHER ==
[2021-03-03] MEDS ORDERED: Z GUARD REMEDY 2 OZ OINT TP ONE (13:31)
== END 2021-03-03 23:59 | disposition home health service (06) ==
LOC: WOU 13:00
PROVIDERS: ATTEND Surgery
DX: S31.31XA Laceration without foreign body of scrotum and testes, initial encounter (principal); X58.XXXA Exposure to other specified factors, initial encounter; Y92.89 Other specified places as the place of occurrence of the external cause; L02.225 Furuncle of perineum; L22 Diaper dermatitis; I87.2 Venous insufficiency (chronic) (peripheral); I73.9 Peripheral vascular disease, unspecified; R73.03 Prediabetes; Z79.84 Long term (current) use of oral hypoglycemic drugs; Z79.82 Long term (current) use of aspirin; Z99.3 Dependence on wheelchair
CPT/HCPCS: 11043; A6407

== ENCOUNTER 2021-03-07 10:30 | Outpatient (CLI) | payer MEDICARE, OTHER | END 2021-03-07 23:59 | disposition home health service (06) | LOC: WOU 10:30 | PROVIDERS: ATTEND Podiatrist Foot & Ankle Surgery | DX: I70.244 Atherosclerosis of native arteries of left leg with ulceration of heel and midfoot (principal); L97.422 Non-pressure chronic ulcer of left heel and midfoot with fat layer exposed; I70.234 Atherosclerosis of native arteries of right leg with ulceration of heel and midfoot; L97.412 Non-pressure chronic ulcer of right heel and midfoot with fat layer exposed; I87.2 Venous insufficiency (chronic) (peripheral); L60.3 Nail dystrophy; L02.225 Furuncle of perineum; L22 Diaper dermatitis; Z79.82 Long term (current) use of aspirin | CPT/HCPCS: 11042 ==

== ENCOUNTER 2021-03-10 12:49 | Outpatient (CLI) | payer MEDICARE, OTHER | END 2021-03-10 23:59 | disposition home or self-care (01) | LOC: RAD 12:49 | PROVIDERS: ATTEND Surgery | DX: S31.109A Unspecified open wound of abdominal wall, unspecified quadrant without penetration into peritoneal cavity, initial encounter (principal); I25.10 Atherosclerotic heart disease of native coronary artery without angina pectoris; K42.9 Umbilical hernia without obstruction or gangrene; I51.7 Cardiomegaly; N28.1 Cyst of kidney, acquired; M16.12 Unilateral primary osteoarthritis, left hip; M51.36 Other intervertebral disc degeneration, lumbar region; Z96.641 Presence of right artificial hip joint; X58.XXXA Exposure to other specified factors, initial encounter; Y93.89 Activity, other specified; Y92.89 Other specified places as the place of occurrence of the external cause; Y99.8 Other external cause status ==

== ENCOUNTER → 2021-03-11 | Outpatient (CLI) | payer MEDICARE, OTHER | END | disposition home or self-care (01) | LOC: WOU 15:00 | PROVIDERS: ATTEND Surgery | DX: L02.225 Furuncle of perineum (principal); S31.31XD Laceration without foreign body of scrotum and testes, subsequent encounter; X58.XXXD Exposure to other specified factors, subsequent encounter; L22 Diaper dermatitis; I87.2 Venous insufficiency (chronic) (peripheral); I73.9 Peripheral vascular disease, unspecified | CPT/HCPCS: G0463 ==

== ENCOUNTER 2021-03-14 14:00 | Outpatient (CLI) | payer MEDICARE, OTHER | END 2021-03-14 23:59 | disposition home or self-care (01) | LOC: WOU 14:00 → RAD 23:59 | PROVIDERS: ATTEND Surgery | DX: S31.109A Unspecified open wound of abdominal wall, unspecified quadrant without penetration into peritoneal cavity, initial encounter (principal); I25.10 Atherosclerotic heart disease of native coronary artery without angina pectoris; K80.20 Calculus of gallbladder without cholecystitis without obstruction; K42.9 Umbilical hernia without obstruction or gangrene; J91.8 Pleural effusion in other conditions classified elsewhere; R16.0 Hepatomegaly, not elsewhere classified; I70.0 Atherosclerosis of aorta; Z96.651 Presence of right artificial knee joint; X58.XXXA Exposure to other specified factors, initial encounter; Y93.89 Activity, other specified; Y92.89 Other specified places as the place of occurrence of the external cause; Y99.8 Other external cause status ==

== ENCOUNTER 2021-03-17 09:20 | Outpatient (CLI) | payer MEDICARE, OTHER | END 2021-03-17 23:59 | disposition home or self-care (01) | LOC: WOU 09:20 | PROVIDERS: ATTEND Podiatrist Foot & Ankle Surgery | DX: Z71.2 Person consulting for explanation of examination or test findings (principal); L02.225 Furuncle of perineum; I87.2 Venous insufficiency (chronic) (peripheral); I73.9 Peripheral vascular disease, unspecified; L60.3 Nail dystrophy; L22 Diaper dermatitis; Z87.891 Personal history of nicotine dependence; Z79.82 Long term (current) use of aspirin | CPT/HCPCS: G0463 ==

== ENCOUNTER 2021-03-21 14:00 | Outpatient (CLI) | payer MEDICARE, OTHER ==
[2021-03-21] MEDS ORDERED: DAKINS HALF STRENGTH (0.25%) 480 ML BOTTLE ONE (14:35)
== END 2021-03-21 23:59 | disposition home health service (06) ==
LOC: WOU 14:00
PROVIDERS: ATTEND Surgery
DX: L03.315 Cellulitis of perineum (principal); L02.215 Cutaneous abscess of perineum; S91.115A Laceration without foreign body of left lesser toe(s) without damage to nail, initial encounter; W22.03XA Walked into furniture, initial encounter; Y92.89 Other specified places as the place of occurrence of the external cause; I70.244 Atherosclerosis of native arteries of left leg with ulceration of heel and midfoot; L97.422 Non-pressure chronic ulcer of left heel and midfoot with fat layer exposed; I87.2 Venous insufficiency (chronic) (peripheral); L60.3 Nail dystrophy; L22 Diaper dermatitis; Z79.82 Long term (current) use of aspirin
CPT/HCPCS: 11043; 87070; 87075; 87077; 87186 ×2; A6407

== ENCOUNTER 2021-03-28 11:00 | Outpatient (CLI) | payer MEDICARE, OTHER | END 2021-03-28 23:59 | disposition home health service (06) | LOC: WOU 11:00 | PROVIDERS: ATTEND Podiatrist Foot & Ankle Surgery | DX: I70.244 Atherosclerosis of native arteries of left leg with ulceration of heel and midfoot (principal); L97.422 Non-pressure chronic ulcer of left heel and midfoot with fat layer exposed; S91.115D Laceration without foreign body of left lesser toe(s) without damage to nail, subsequent encounter; X58.XXXD Exposure to other specified factors, subsequent encounter; I87.2 Venous insufficiency (chronic) (peripheral); L60.3 Nail dystrophy; L22 Diaper dermatitis; Z79.82 Long term (current) use of aspirin | CPT/HCPCS: 11042 ==

== ENCOUNTER 2021-04-01 14:45 | Outpatient (CLI) | payer MEDICARE, OTHER | END 2021-04-01 23:59 | disposition home or self-care (01) | LOC: WOU 14:45 | PROVIDERS: ATTEND Surgery | DX: L02.215 Cutaneous abscess of perineum (principal); L03.315 Cellulitis of perineum; I87.2 Venous insufficiency (chronic) (peripheral); I73.9 Peripheral vascular disease, unspecified | CPT/HCPCS: G0463 ==

== ENCOUNTER 2021-04-04 10:05 | Outpatient (CLI) | payer MEDICARE, OTHER ==
[2021-04-04] MEDS ORDERED: UREA 10% -AHA 4% CREAM 57 GM TUBE ONE (10:27)
[2021-04-04] MEDS ORDERED: LIDOCAINE SOLN 4% 50 ML BOTTLE ONE (10:29)
== END 2021-04-04 23:59 | disposition home health service (06) ==
LOC: WOU 10:05
PROVIDERS: ATTEND Podiatrist Foot & Ankle Surgery
DX: I70.244 Atherosclerosis of native arteries of left leg with ulceration of heel and midfoot (principal); L97.422 Non-pressure chronic ulcer of left heel and midfoot with fat layer exposed; S91.115D Laceration without foreign body of left lesser toe(s) without damage to nail, subsequent encounter; X58.XXXD Exposure to other specified factors, subsequent encounter; L60.3 Nail dystrophy; L22 Diaper dermatitis; Z79.82 Long term (current) use of aspirin; Z99.3 Dependence on wheelchair
CPT/HCPCS: 11042

== ENCOUNTER 2021-04-07 13:00 | Outpatient (CLI) | payer MEDICARE, OTHER | END 2021-04-07 23:59 | disposition home or self-care (01) | LOC: WOU 13:00 | PROVIDERS: ATTEND Surgery | DX: Z75.3 Unavailability and inaccessibility of health-care facilities (principal) ==

== ENCOUNTER 2021-04-11 14:20 | Outpatient (CLI) | payer MEDICARE, OTHER ==
[2021-04-11] MEDS ORDERED: DAKINS HALF STRENGTH (0.25%) 480 ML BOTTLE ONE (15:55)
[2021-04-11] MEDS ORDERED: LIDOCAINE SOLN 4% 50 ML BOTTLE ONE (15:56)
[2021-04-11] MEDS ORDERED: Z GUARD REMEDY 2 OZ OINT TP ONE (15:56)
== END 2021-04-11 23:59 | disposition home health service (06) ==
LOC: WOU 14:20
PROVIDERS: ATTEND Surgery
DX: L89.324 Pressure ulcer of left buttock, stage 4 (principal); L03.315 Cellulitis of perineum; I87.2 Venous insufficiency (chronic) (peripheral); I73.9 Peripheral vascular disease, unspecified; L60.3 Nail dystrophy; L22 Diaper dermatitis; Z79.82 Long term (current) use of aspirin; R73.03 Prediabetes; Z79.84 Long term (current) use of oral hypoglycemic drugs
CPT/HCPCS: 11043; 87070-TC; 87186-TC

== ENCOUNTER → 2021-04-14 | Outpatient (CLI) | payer MEDICARE, OTHER | END | disposition home or self-care (01) | LOC: WOU 16:00 | PROVIDERS: ATTEND Surgery | DX: L03.315 Cellulitis of perineum (principal); I73.9 Peripheral vascular disease, unspecified; I87.2 Venous insufficiency (chronic) (peripheral); L22 Diaper dermatitis ==

== ENCOUNTER 2021-04-18 13:45 | Outpatient (CLI) | payer MEDICARE, OTHER ==
[2021-04-18] MEDS ORDERED: LIDOCAINE SOLN 4% 50 ML BOTTLE ONE (13:47)
[2021-04-18] MEDS ORDERED: Z GUARD REMEDY 2 OZ OINT TP ONE (14:07)
== END 2021-04-18 23:59 | disposition home health service (06) ==
LOC: WOU 13:45
PROVIDERS: ATTEND Surgery
DX: L89.324 Pressure ulcer of left buttock, stage 4 (principal); L03.315 Cellulitis of perineum; B96.1 Klebsiella pneumoniae [K. pneumoniae] as the cause of diseases classified elsewhere; I87.2 Venous insufficiency (chronic) (peripheral); I73.9 Peripheral vascular disease, unspecified; L60.3 Nail dystrophy; Z79.82 Long term (current) use of aspirin
CPT/HCPCS: 11043

== ENCOUNTER 2021-04-20 15:00 | Outpatient (CLI) | payer MEDICARE, OTHER | END 2021-04-20 23:59 | disposition home or self-care (01) | LOC: WOU 15:00 | PROVIDERS: ATTEND Registered Nurse | DX: I87.2 Venous insufficiency (chronic) (peripheral) (principal); L97.929 Non-pressure chronic ulcer of unspecified part of left lower leg with unspecified severity; L97.919 Non-pressure chronic ulcer of unspecified part of right lower leg with unspecified severity; B95.2 Enterococcus as the cause of diseases classified elsewhere; B96.1 Klebsiella pneumoniae [K. pneumoniae] as the cause of diseases classified elsewhere; E11.51 Type 2 diabetes mellitus with diabetic peripheral angiopathy without gangrene; I10 Essential (primary) hypertension; F03.90 Unspecified dementia, unspecified severity, without behavioral disturbance, psychotic disturbance, mood disturbance, and anxiety; G45.9 Transient cerebral ischemic attack, unspecified; Z79.82 Long term (current) use of aspirin | CPT/HCPCS: G0463 ==

== ENCOUNTER 2021-06-09 10:00 | Outpatient (CLI) | payer MEDICARE, OTHER | END 2021-06-09 23:59 | disposition home health service (06) | LOC: WOU 10:00 | PROVIDERS: ATTEND Podiatrist Foot & Ankle Surgery | DX: I73.9 Peripheral vascular disease, unspecified (principal); I87.2 Venous insufficiency (chronic) (peripheral); Z74.09 Other reduced mobility; Z79.82 Long term (current) use of aspirin | CPT/HCPCS: G0463 ==